=== PATIENT | female | born 1990 | race American Indian/Alaskan Native ===

== ENCOUNTER 2017-10-19 07:25 | Inpatient (IN) | payer MEDICAID ==
[2017-10-19] MEDS ORDERED: LACTATED RINGERS 1,000 ML IV SCH (10:00)
[2017-10-19] MEDS ORDERED: PITOCin/NS 30 UNIT/500ML 30 UNITS/500 ML BAG IV SCH (10:00)
[2017-10-19] MEDS ORDERED: PITOCin/NS 20 UNIT/1000ML DRIP 20 UNITS/1,000 ML BAG IV SCH ×2 (10:00→11:00)
[2017-10-19 10:23] LABS: Hematocrit 33.2 % (30.3-42.9); Hemoglobin 10.9 gm/dl (10.1-14.3); Mean Corpuscular HGB Conc 33 % (30-34); Mean Corpuscular Hemoglobin 27 pg (28-32); Mean Corpuscular Volume 83 fl (79-97); Platelet Count 311 K/mm3 (140-440); Red Cell Distribution Width 14.4 % (13.2-15.2); White Blood Count 12.5 K/mm3 (4.5-11.0)
[2017-10-19] MEDS ORDERED: BRETHINE IVP PRN (10:37)
[2017-10-19] MEDS ORDERED: XYLOCAINE 2% INFILTRATI ONE ×2 (10:37→14:42)
[2017-10-19] MEDS ORDERED: MINERAL OIL PO PRN (10:37)
[2017-10-19] MEDS ORDERED: ePHEDrine SULFATE IV PRN (10:37)
[2017-10-19] MEDS ORDERED: BRETHINE SUB-Q PRN (10:37)
[2017-10-19] MEDS ORDERED: NORMODYNE PO SCH (11:00)
--- NOTE | 2017-10-19 11:13 | History and Physical Report ---
History of Present Illness Date of examination: 10/19/17 Date of admission: 10/19/17 07:26 Chief complaint: C/O leaking fluid since 5am with contractions initially every 12-14 mins but now less than 5 mins apart. History of present illness: Her is complicated by gestational HTN, positive HSV II & vitamin D deficiency. She is on Labetalol 200mg BID. She was started on suppressive therapy for genital herpes 09/21/17 and denies any recent outbreak. Her GBS is negative. 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 Family/Genetic History: diabetes, hypertension Social history: single - Obstetrical History Expected Date of Delivery: 10/22/17 Actual Gestation: 39 Week(s) 4 Day(s) : 2 Para: 0 Hx # Term Pregnancies: 0 Number of Pregnancies: 0 Spontaneous Abortions: 1 Induced : 0 Number of Living Children: 0 Medications and Allergies Allergies Allergy/AdvReac Type Severity Reaction Status Date / Time No Known Allergies Allergy Unverified 09/29/17 13:00 Home Medications Medication Instructions Recorded Confirmed Last Taken Type ALBUTEROL Inhaler [ProAir HFA 1 puff INHALATION PRN 10/19/17 10/19/17 2 Days Ago History Inhaler] ~10/17/17 Labetalol [Normodyne] 200 mg PO BID 10/19/17 10/19/17 10/18/17 20:00 History Valacyclovir HCl [Valtrex] 1,000 mg PO QDAY 10/19/17 10/19/17 2 Days Ago History ~10/17/17 Active Meds: Active Medications Lactated Ringer's (Lactated Ringers) 1,000 mls @ 125 mls/hr IV DIRECT HARLEY Last Admin: 10/19/17 10:22 Dose: 125 mls/hr Oxytocin/Sodium Chloride (Pitocin/Ns 20 Unit/1000ml Drip) 20 units in 1,000 mls @ 0 mls/hr IV DIRECT HARLEY PRN Reason: As Directed Oxytocin/Sodium Chloride (Pitocin/Ns 30 Unit/500ml) 30 units in 500 mls @ 1 mls /hr IV TITR HARLEY PRN Reason: Protocol Last Admin: 10/19/17 10: Dose: 1 ml/hr, 1 mls/hr Labetalol HCl (Normodyne) 200 mg PO BID HARLEY Last Admin: 10/19/17 10:47 Dose: 200 mg Review of Systems All systems: negative - Vital Signs Vital signs: Vital Signs Pulse BP 95 H 143/85 10/19/17 07:39 10/19/17 07:39 Temp Pulse Resp BP Pulse Ox 98.1 F 99 H 18 141/84 100 10/19/17 08:14 10/19/17 10:47 10/19/17 08:14 10/19/17 10:47 10/19/17 09:30 - Physical Exam Breasts: Positive: deferred Cardiovascular: Regular rate, Normal S1, Normal S2, No murmurs Lungs: Positive: Clear to auscultation, Normal air movement Abdomen: Positive: normal appearance, soft Genitourinary (Female): Positive: normal external genitalia, normal perenium Vulva: both: normal Vagina: Positive: normal moisture, other (meconium-stained fluid) Uterus: Positive: normal size, normal contour Anus/Rectum: Positive: normal perianal skin Extremities: Positive: normal Deep Tendon Reflex Grade: Normal +2 - Obstetrical FHR: category 2 FHR comments: baseline 140, moderate variability, +accels, occasional early & variable decels Uterine Contraction Monitor Mode: Palpation Cervical Dilatation: 1.5 (per RN) Cervical Effacement Percentage: 80 (per RN) station: -2 (per RN) Uterine Contraction Frequency (min): 4-5 Uterine Contraction Duration: 60-100 secs Uterine Contraction Pattern: Regular Results Result Diagrams: 10/19/17 09:50 Abnormal lab results 10/19/17 Range/Units 09:50 WBC 12.5 H (4.5-11.0) K/mm3 MCH 27 L (28-32) pg All other labs normal. Assessment and Plan A: 26yo @ 39w4d by US SROM Latent Labor Gestational HTN P: Admit to L&D Start oxytocin for labor augmentation Continue Labetalol 200mg PO BID Anticipate vaginal delivery
[2017-10-19] MEDS: STADOL IV PRN ×2 (11:40→13:56)
--- NOTE | 2017-10-19 12:27 | Event Note ---
Date: 10/19/17 S: Pt c/o worsening ctxs. Pain level 09/05. O: FHR: baseline 135, mod variability, +accels, recurrent variable decels CTXS: q2-4 mins, palpate strong SVE 6/100/-1 IUPC/FSE inserted BP 146/99 A: Category II FHR Active Labor Gestational HTN P: Dr. Belcher notified Discontinue Pitocin Start amnioinfusion Maintain lateral positioning Stat PIH labs Anticipate vaginal delivery
[2017-10-19] MEDS ORDERED: NACL 0.9% 1000 ML 1,000 ML VG SCH (13:00)
[2017-10-19 14:03] LABS: Bilirubin,Urine NEG (Negative); Blood,Urine SM (Negative); Ketones,Urine NEG (Negative); Leukocyte Esterase,Urine NEG (Negative); Mucus,Urine FEW /HPF; Nitrite,Urine NEG (Negative); Protein,Urine <15 mg/dL mg/dL (Negative); Urobilinogen,Urine < 2.0 mg/dL (<2.0)
[2017-10-19] MEDS ORDERED: NARCAN 2 MG/2 ML ONE (14:15)
[2017-10-19 14:23] LABS: Alanine Aminotransferase 13 units/L (7-56); Lactate Dehydrogenase 251 units/L (91-180); Uric Acid 3.5 mg/dL (3.5-7.6)
[2017-10-19] MEDS ORDERED: CYTOTEC ONE (14:39)
[2017-10-19] MEDS ORDERED: METHERGINE IM ONE (14:40)
--- NOTE | 2017-10-19 14:48 | Progress Note ---
Assessment and Plan - Patient Problems (1) with 39 completed weeks gestation Current Visit: Yes Status: Acute (2) Active labor Current Visit: Yes Status: Acute Plan to address problem: Continue FHT and toco monitoring. Anticipate . (3) Thick meconium stained amniotic fluid Current Visit: Yes Status: Acute Plan to address problem: Amnioinfusion given. (4) Gestational HTN Current Visit: Yes Status: Acute Plan to address problem: Toxemia labs sent. Will f/u result and continue to monitor BP. Subjective - Subjective Date of service: 10/19/17 Principal diagnosis: Active labor Interval history: Patient is 26 year old at 39 weeks gestation who was admitted for early labor and SROM with thick meconium this AM. She developed variable decelerations while on pitocin augmentation. Pitocin was stopped and contractions continued every 2-3 mins. Amnioinfusion was given and the decelerations stopped. tracing had become CAT1 afterwards. BP was elevated to 140'/80-90's but patient has been asymptomatic. Toxemia labs are ordered. Result pending. Objective - Vital Signs Vital Signs: Vital Signs - 12hr 10/19/17 10/19/17 10/19/17 07:39 07:49 07:54 Temperature Pulse Rate 95 H 104 H 91 H Respiratory Rate Blood Pressure 143/85 O2 Sat by Pulse 100 100 Oximetry 10/19/17 10/19/17 10/19/17 07:59 08:04 08:09 Temperature Pulse Rate 89 93 H 97 H Respiratory Rate Blood Pressure O2 Sat by Pulse 100 99 100 Oximetry 10/19/17 10/19/17 10/19/17 08:14 08:19 08:24 Temperature 98.1 F Pulse Rate 94 H 103 H 120 H Respiratory 18 Rate Blood Pressure O2 Sat by Pulse 100 100 99 Oximetry 10/19/17 10/19/17 10/19/17 08:29 08:34 08:39 Temperature Pulse Rate 97 H 99 H 105 H Respiratory Rate Blood Pressure O2 Sat by Pulse 99 100 100 Oximetry 10/19/17 10/19/17 10/19/17 08:44 08:59 09:00 Temperature Pulse Rate 100 H 104 H 96 H Respiratory Rate Blood Pressure 132/80 O2 Sat by Pulse 100 100 Oximetry 10/19/17 10/19/17 10/19/17 09:05 09:08 09:10 Temperature Pulse Rate 99 H 103 H 102 H Respiratory Rate Blood Pressure O2 Sat by Pulse 100 85 94 Oximetry 10/19/17 10/19/17 10/19/17 09:15 09:20 09:25 Temperature Pulse Rate 91 H 94 H 98 H Respiratory Rate Blood Pressure O2 Sat by Pulse 100 100 100 Oximetry 10/19/17 10/19/17 10/19/17 09:29 09:30 10:01 Temperature Pulse Rate 98 H 94 H 101 H Respiratory Rate Blood Pressure 147/87 143/83 O2 Sat by Pulse 100 Oximetry 10/19/17 10/19/17 10/19/17 10:30 10:47 11:00 Temperature Pulse Rate 99 H 99 H 88 Respiratory Rate Blood Pressure 141/84 141/84 128/78 O2 Sat by Pulse Oximetry 10/19/17 10/19/17 10/19/17 11:29 11:41 12:01 Temperature 98.1 F Pulse Rate 90 90 Respiratory 16 Rate Blood Pressure 145/87 146/99 O2 Sat by Pulse Oximetry 10/19/17 10/19/17 10/19/17 12:29 13:18 13:25 Temperature Pulse Rate 86 75 77 Respiratory Rate Blood Pressure 133/75 134/79 O2 Sat by Pulse 98 Oximetry 10/19/17 10/19/17 10/19/17 13:30 13:35 13:37 Temperature Pulse Rate 88 87 81 Respiratory Rate Blood Pressure O2 Sat by Pulse 100 99 89 Oximetry 10/19/17 10/19/17 10/19/17 13:40 13:45 13:50 Temperature Pulse Rate 77 83 80 Respiratory Rate Blood Pressure O2 Sat by Pulse 100 100 100 Oximetry - Exam Cardiovascular: Normal S1, Normal S2 Lungs: Clear to auscultation FHR: category 1 Uterine Contraction Monitor Mode: External Cervical Dilatation: 5 Cervical Effacement Percentage: 80 station: -2 Uterine Contraction Pattern: Irregular Uterine Contraction Intensity: Moderate Deep Tendon Reflex Grade: Normal +2 - Labs Labs: Abnormal Labs 10/19/17 10/19/17 09:50 12:39 WBC 12.5 H MCH 27 L Creatinine 0.3 L Lactate Dehydrogenase 251 H Laboratory Results - last 24 hr 10/19/17 10/19/17 10/19/17 09:50 09:50 09:50 WBC 12.5 H RBC 4.00 Hgb 10.9 Hct 33.2 MCV 83 MCH 27 L MCHC 33 RDW 14.4 Plt Count 311 Creatinine Estimated GFR Uric Acid AST ALT Lactate Dehydrogenase Urine Color Urine Turbidity Urine pH Ur Specific Robards Urine Protein Urine Glucose (UA) Urine Ketones Urine Blood Urine Nitrite Urine Bilirubin Urine Urobilinogen Ur Leukocyte Esterase Urine WBC (Auto) Urine RBC (Auto) U Epithel Cells (Auto) Urine Mucus RPR Nonreactive Blood Type B POSITIVE Antibody Screen Negative 10/19/17 10/19/17 12:39 13:30 WBC RBC Hgb Hct MCV MCH MCHC RDW Plt Count Creatinine 0.3 L Estimated GFR > 60 Uric Acid 3.5 AST 21 ALT 13 Lactate Dehydrogenase 251 H Urine Color Yellow Urine Turbidity Clear Urine pH 7.0 Ur Specific Robards 1.014 Urine Protein <15 mg/dl Urine Glucose (UA) Neg Urine Ketones Neg Urine Blood Sm Urine Nitrite Neg Urine Bilirubin Neg Urine Urobilinogen < 2.0 Ur Leukocyte Esterase Neg Urine WBC (Auto) 1.0 Urine RBC (Auto) 15.0 U Epithel Cells (Auto) < 1.0 Urine Mucus Few RPR Blood Type Antibody Screen
--- NOTE | 2017-10-19 15:01 | Procedure Note ---
OB Delivery Note - Delivery Date of Delivery: 10/19/17 (14:30) Estimated blood loss: 300cc - Vaginal Delivery presentation: vertex Delivery position: OA Intrapartum events: meconium, gestational hypertension, mult.variable deceleratio Delivery induction: none Delivery augmentation: pitocin Delivery monitor: external FHT, external uterine, internal FHT, internal uterine Route of delivery: Delivery placenta: spontaneous (@ 14:34) Delivery cord: 3 umbilical vessels Episiotomy: none Delivery laceration: 1st degree (bilateral labial; hemostatic) Anesthesia: epidural Delivery comments: of a vigorous term female @ 14:30. Baby immediately placed on mom's abdomen & dried. Blow-by oxygen later administered by GRIFFIN Penny. Cord double- clamped and cut by FOB. Spontanoeus delivery of placenta @ 14:34. Moderate lochia noted. Fundus F/ML/U-1. Bilateral labial tears present and hemostatic with pressure so not repaired. Placenta intact. EBL 300. Apgars 7 at 1 min & 9 at 5 mins. Weight 7 lbs 13oz. Mom and baby in stable condition. - A at 1 minute: 7 at 5 minutes: 9 Infant Gender: Female
[2017-10-19] MEDS ORDERED: NORCO 5/325 PO PRN (15:14)
[2017-10-19] MEDS ORDERED: MILK OF MAGNESIA PO PRN (15:14)
[2017-10-19] MEDS ORDERED: DULCOLAX PR PRN (15:14)
[2017-10-19] MEDS ORDERED: TYLENOL PO PRN (15:14)
[2017-10-19] MEDS ORDERED: PHENERGAN PO PRN (15:14)
[2017-10-19] MEDS ORDERED: PHENERGAN PR PRN (15:14)
[2017-10-19] MEDS ORDERED: BENADRYL PO PRN (15:14)
[2017-10-19] MEDS ORDERED: TUCKS PAD TP PRN (15:14)
[2017-10-19] MEDS ORDERED: ZOFRAN IV PRN (15:14)
[2017-10-19] MEDS ORDERED: SODIUM CHLORIDE FLUSH SYRINGE 10 ML IV NR (16:00)
[2017-10-19] MEDS ORDERED: MOTRIN PO SCH (16:00)
[2017-10-20] MEDS: MOTRIN PO SCH ×5 (00:20→23:50)
[2017-10-20 05:15] LABS: Hematocrit 27.6 % (30.3-42.9); Hemoglobin 8.9 gm/dl (10.1-14.3)
--- NOTE | 2017-10-20 08:29 | Progress Note ---
Assessment and Plan A: day 1. Anemia. P: Supplement with iron po. Anticipate discharge tomorrow. Subjective - Subjective Date of service: 10/20/17 Principal diagnosis: day 1 S/P Interval history: Patient is doing well. Bottlefeeding. Caring for infant without difficulty. Patient is tolerating a regular diet without nausea or vomiting. She is ambulating well and voiding without difficulty. Patient denies headache, chest pain, cough, shortness of breath, leg pain, abdominal pain, or symptoms of depression. Patient reports: appetite normal, voiding normally, pain well controlled, flatus , ambulating normally : doing well Objective - Vital Signs Latest vital signs: Vital Signs Temp Pulse Resp BP BP Pulse Ox 10/20/17 01:00 99 F 89 18 125/71 10/20/17 00:20 18 10/19/17 22:05 98 F 92 H 18 126/71 10/19/17 16:25 97.5 F L 71 114/68 10/19/17 16:04 74 122/75 10/19/17 15:57 81 100 10/19/17 15:52 81 100 10/19/17 15:47 92 H 100 10/19/17 15:46 96.9 F L 16 10/19/17 15:42 88 100 10/19/17 15:37 77 144/77 100 10/19/17 15:32 73 100 10/19/17 15:27 74 100 10/19/17 15:23 83 139/77 10/19/17 15:22 84 100 10/19/17 15:17 96 H 100 10/19/17 15:12 97 H 100 10/19/17 15:08 90 142/93 10/19/17 15:07 86 99 10/19/17 14:53 47 L 133/91 10/19/17 13:50 80 100 10/19/17 13:45 83 100 10/19/17 13:40 77 100 10/19/17 13:37 81 89 10/19/17 13:35 87 99 10/19/17 13:30 88 100 10/19/17 13:25 77 98 10/19/17 13:18 75 134/79 10/19/17 12:29 86 133/75 10/19/17 12:01 90 146/99 10/19/17 11:41 98.1 F 16 11/23/17 11:29 90 145/87 10/19/17 11:00 88 128/78 10/19/17 10:47 99 H 141/84 10/19/17 10:30 99 H 141/84 10/19/17 10:01 101 H 143/83 10/19/17 09:30 94 H 100 10/19/17 09:29 98 H 147/87 10/19/17 09:25 98 H 100 10/19/17 09:20 94 H 100 10/19/17 09:15 91 H 100 10/19/17 09:10 102 H 94 10/19/17 09:08 103 H 85 10/19/17 09:05 99 H 100 10/19/17 09:00 96 H 100 10/19/17 08:59 104 H 132/80 10/19/17 08:44 100 H 100 10/19/17 08:39 105 H 100 10/19/17 08:34 99 H 100 10/19/17 08:29 97 H 99 Intake and Output 10/19/17 10/20/17 10/20/17 23:59 07:59 15:59 Intake Total 120 240 Output Total 1550 Balance -1430 240 Intake: Oral 120 Intake, Free Water 240 Output: Urine 1550 Void 1550 Other: Total, Intake Amount 120 Total, Output Amount 650 - Exam Abdomen: Present: normal appearance, soft. Absent: distention, tenderness, guarding, rigidity Uterus: Present: normal, firm. Absent: bogginess, tenderness, fundal height below umbilicus Extremities: Present: normal. Absent: tenderness, edema - Labs Labs: Abnormal lab results 10/19/17 10/19/17 10/20/17 Range/Units 09:50 12:39 04:45 WBC 12.5 H (4.5-11.0) K/mm3 Hgb 8.9 L (10.1-14.3) gm/dl Hct 27.6 L (30.3-42.9) % MCH 27 L (28-32) pg Creatinine 0.3 L (0.7-1.2) mg/dL Lactate Dehydrogenase 251 H (91-180) units/L
[2017-10-20] MEDS: FEOSOL PO SCH ×2 (14:00→21:35)
[2017-10-21] MEDS: MOTRIN PO SCH (05:33)
--- NOTE | 2017-10-21 09:17 | Progress Note ---
Assessment and Plan A: day 2 S/P spontaneous vaginal delivery. Anemia. P: Discharge patient home today. Advised patient to continue her vitamin and iron supplements at home. discharge instructions and warning signs discussed in detail with patient. Advised patient to avoid intercourse, avoid heavy lifting and housework, and avoid driving. Advised patient to follow up at [facility] in 6 weeks. Patient voiced understanding of above instructions. Subjective - Subjective Date of service: 10/21/17 Principal diagnosis: day 2 S/P Interval history: day 2 S/P spontaneous vaginal delivery. Patient desires discharge today. Patient is doing well. Bottlefeeding. Caring for without difficulty. Patient is tolerating a regular diet without nausea or vomiting. She is ambulating well and voiding without difficulty. Patient denies headache, chest pain, cough, shortness of breath, leg pain, abdominal pain, heavy vaginal bleeding, or symptoms of depression. Patient is undecided regarding control. Patient reports: appetite normal, voiding normally, pain well controlled, flatus , ambulating normally [place]: doing well Objective - Vital Signs Latest vital signs: Vital Signs Temp Pulse Resp BP BP Pulse Ox 10/21/17 00:27 98.3 F 78 20 129/78 10/20/17 16:30 98.8 F 90 20 124/78 100 10/20/17 12:45 97.9 F 92 H 18 130/77 99 Intake and Output 10/20/17 10/21/17 10/21/17 23:59 07:59 15:59 Intake Total 360 200 Balance 360 200 Intake: Oral 360 200 Other: Total, Intake Amount 360 200 # Voids Void 2 1 - Exam Cardiovascular: Present: Regular rate, Normal S1, Normal S2 Lungs: Present: Clear to auscultation Abdomen: Present: normal appearance, soft. Absent: distention, tenderness, guarding, rigidity Uterus: Present: normal, firm, fundal height below umbilicus. Absent: bogginess , tenderness Extremities: Present: normal. Absent: tenderness, edema
--- NOTE | 2017-10-21 09:21 | Discharge Summary ---
Providers - Providers Date of Admission: 10/19/17 07:26 Date of discharge: 10/21/17 Attending physician: VAHID WHITE MD None Primary care physician: VAHID WHITE MD Hospitalization Reason for admission: induction of labor, rupture of membranes, IUP at term Delivery: Episiotomy: none Laceration: 1st degree Other procedures: none complications: none Discharge diagnosis: IUP at term delivered [place] baby: female Pertinent studies: Labs Hospital course: Normal course. Condition at discharge: Good Disposition: DC-01 TO HOME OR SELFCARE - Discharge Diagnoses (1) Term delivered Status: Acute Plan - Provider Discharge Summary Activity: routine, no sex for 6 weeks, no heavy lifting 4 weeks, no strenuous exercise Diet: routine Instructions: routine Additional instructions: Call your doctor immediately for: * Fever > 100.5 * Heavy vaginal bleeding ( >1 pad per hour) * Severe persistent headache * Shortness of breath * Reddened, hot, painful area to leg or breast - Follow up plan Follow up: VAHID WHITE MD [Primary Care Provider] - 6 Weeks
[2017-10-21 13:36] VITALS: BP 123/81
== END 2017-10-21 13:30 | disposition home or self-care (01) | DRG 774 ==
LOC: TRG 07:25 → LD 07:26 → OB 16:29
PROVIDERS: ADMIT Obstetrics & Gynecology; ATTEND Obstetrics & Gynecology
PROC: 3E0R3BZ Introduction of Anesthetic Agent into Spinal Canal, Percutaneous Approach (ICD-10-PCS; principal; 2017-10-19)
PROC: 00HU33Z Insertion of Infusion Device into Spinal Canal, Percutaneous Approach (ICD-10-PCS; principal; 2017-10-19)
PROC: 10E0XZZ Delivery of Products of Conception, External Approach (ICD-10-PCS; principal; 2017-10-19)
DX: O77.0 Labor and delivery complicated by meconium in amniotic fluid (principal); O13.4 Gestational [pregnancy-induced] hypertension without significant proteinuria, complicating childbirth; O70.0 First degree perineal laceration during delivery; O76 Abnormality in fetal heart rate and rhythm complicating labor and delivery; Z3A.39 39 weeks gestation of pregnancy; Z37.0 Single live birth; O90.81 Anemia of the puerperium; D64.9 Anemia, unspecified
CPT/HCPCS: 36415; 81001; 82565; 83615; 84450; 84460; 84550; 85014; 85018; 85027; 86592; 86850; 86900; 86901; J0595; J2210; J2310; J2590; J7030; J7120

== ENCOUNTER 2018-03-07 17:30 | Emergency (ER) | payer OTHER, MEDICAID ==
[2018-03-07 17:44] VITALS: BP 132/85
[2018-03-07] MEDS ORDERED: MOTRIN ONE (19:59)
[2018-03-07] MEDS ORDERED: MOTRIN PO ONE (20:01)
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
[2018-03-07] MEDS ORDERED: FLEXERIL PO ONE (20:48)
[2018-03-07] MEDS ORDERED: NORCO 5/325 PO ONE (20:48)
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
== END 2018-03-07 23:10 | disposition home or self-care (01) ==
LOC: ED 17:30
DX: S16.1XXA Strain of muscle, fascia and tendon at neck level, initial encounter (principal); S60.221A Contusion of right hand, initial encounter; S40.011A Contusion of right shoulder, initial encounter; S50.12XA Contusion of left forearm, initial encounter; V49.40XA Driver injured in collision with unspecified motor vehicles in traffic accident, initial encounter; J45.909 Unspecified asthma, uncomplicated; F17.200 Nicotine dependence, unspecified, uncomplicated; F12.10 Cannabis abuse, uncomplicated; Y93.89 Activity, other specified; Y92.89 Other specified places as the place of occurrence of the external cause; Y99.8 Other external cause status
CPT/HCPCS: 72040; 99283

== ENCOUNTER 2019-06-07 06:43 | Emergency (ER) | payer MEDICAID, OTHER ==
[2019-06-07] MEDS ORDERED: BENADRYL PO ONE ×2 (06:51→06:55)
[2019-06-07] MEDS ORDERED: PEPCID PO ONE (06:51)
[2019-06-07] MEDS ORDERED: SOLU-Medrol IM ONE (06:51)
[2019-06-07 06:54] VITALS: BP 154/102
--- NOTE | 2019-06-07 08:34 | Emergency Department Report ---
ED Rash HPI - HPI Chief Complaint: Skin Rash Stated Complaint: ALLERGIC REACTION Time Seen by Provider: 06/07/19 08:12 Duration: Today Location: Head, Neck, Chest, Back, Abdomen, Upper Extremities, Lower Extremities, Other Rash Symptoms: Yes Itching, Yes Facial Swelling (bilateral eyelids) Severity: mild ED Review of Systems ROS: Stated complaint: ALLERGIC REACTION Other details as noted in HPI Comment: All other systems reviewed and negative ED Past Medical Hx - Past Medical History Previous Medical History?: Yes Hx Hypertension: No Hx Congestive Heart Failure: No Hx Diabetes: No Hx Deep Vein Thrombosis: No Hx Renal Disease: No Hx Sickle Cell Disease: No Hx Seizures: No Hx Asthma: Yes Hx COPD: No Hx HIV: No Additional medical history: Vaginal dleivery x 1 - Surgical History Past Surgical History?: No - Social History Smoking Status: Current Every Day Smoker Substance Use Type: Alcohol - Medications Home Medications: Home Medications Medication Instructions Recorded Confirmed Last Taken Type Cyclobenzaprine [Flexeril] 10 mg PO TID PRN #15 tablet 03/07/18 Unknown Rx Ibuprofen [Motrin] 600 mg PO Q8H PRN #15 tablet 03/07/18 Unknown Rx Loratadine [Allergy] 10 mg PO QDAY #30 tablet 06/07/19 Unknown Rx predniSONE [Deltasone] 40 mg PO QDAY #8 tab 06/07/19 Unknown Rx Rash Exam - Exam General: Vital signs noted. No distress. Alert and acting appropriately. HEENT: Yes Periorbital Edema, No Conjuctival Injection, No Chemosis, No Perioral Edema, No Tongue Edema, No Uvular Edema, No Compromised Airway, No Drooling Lungs: Yes Good Air Exchange (Normal Breath Sounds), No Wheezes, No Ronchi, No Stridor, No Cough, No Labored Respirations, No Retractions, No Use of Accessory Muscles, No Other Abnormal Lung Sounds Heart: No Regular (tachycardic) Skin: Yes Urticarial Rash Other: Positive: Abdomen Normal, Neurologic Normal, Musculoskeletal Normal ED Course Vital Signs 06/07/19 06:45 Temperature 97.7 F Pulse Rate 123 H Respiratory 18 Rate Blood Pressure 154/102 O2 Sat by Pulse 100 Oximetry ED Medical Decision Making - Medical Decision Making 28-year-old female comes in for allergic reaction. Patient was given dexamethasone Pepcid and Benadryl. Patient reports that her symptoms are improving. Patient be discharged home on steroids 40 mg daily for the next 4 days and loratadine. She is to follow up with primary care provider or wood barker she has any further concerns. Critical care attestation.: If time is entered above; I have spent that time in minutes in the direct care of this critically ill patient, excluding procedure time. ED Disposition Clinical Impression: Urticaria Allergic reaction Qualifiers: Encounter type: initial encounter Qualified Code(s): T78.40XA - Allergy, unspecified, initial encounter Disposition: TO HOME OR SELFCARE Is pt being admited?: No Does the pt Need Aspirin: No Condition: Stable Instructions: Urticaria (ED) Additional Instructions: Take medications as prescribed. Follow up with her primary care provider or wood barker if symptoms persist or gets worse. Prescriptions: Loratadine [Allergy] 10 mg PO QDAY #30 tablet predniSONE [Deltasone] 40 mg PO QDAY #8 tab Referrals: JIM ROSENTHAL MD [Primary Care Provider] - 3-5 Days Forms: Work/School Release Form(ED)
== END 2019-06-07 08:52 | disposition home or self-care (01) ==
LOC: ED 06:43
DX: T78.40XA Allergy, unspecified, initial encounter (principal); L50.9 Urticaria, unspecified; J45.909 Unspecified asthma, uncomplicated; F17.200 Nicotine dependence, unspecified, uncomplicated; Y92.89 Other specified places as the place of occurrence of the external cause
CPT/HCPCS: 96372; 99282; J2930

== ENCOUNTER 2021-11-04 22:55 | Outpatient (CLI) | payer MEDICAID ==
[2021-11-04] MEDS ORDERED: LACTATED RINGERS 500 ML IV ONE (23:17)
[2021-11-04 23:39] VITALS: BP 128/71
[2021-11-05 00:56] LABS: Amorphous Crystals,Urine 3+; Bilirubin,Urine NEG (Negative); Blood,Urine NEG (Negative); Color,Urine Yellow (Yellow); Protein,Urine <15 mg/dL mg/dL (Negative); Urobilinogen,Urine < 2.0 mg/dL (<2.0)
== END 2021-11-05 01:51 | disposition home or self-care (01) ==
LOC: TRG 22:55 → APU 22:56 → TRG 11-05 01:51
PROVIDERS: ATTEND Obstetrics & Gynecology Gynecology
DX: O26.892 Other specified pregnancy related conditions, second trimester (principal); R25.2 Cramp and spasm; O47.1 False labor at or after 37 completed weeks of gestation; O99.342 Other mental disorders complicating pregnancy, second trimester; F41.9 Anxiety disorder, unspecified; O99.512 Diseases of the respiratory system complicating pregnancy, second trimester; J45.909 Unspecified asthma, uncomplicated; O13.2 Gestational [pregnancy-induced] hypertension without significant proteinuria, second trimester; Z3A.27 27 weeks gestation of pregnancy
CPT/HCPCS: 36415; 59025; 81001; 82731; 96360; 96361

== ENCOUNTER 2022-01-30 16:26 | Outpatient (CLI) | payer MEDICAID ==
[2022-01-30] MEDS ORDERED: ACETAMINOPHEN 500 MG TAB PO ONE (17:00)
[2022-01-30] MEDS ORDERED: BUTALB/ACETAMINOPHEN/CAFFEINE TAB PO ONE (17:34)
[2022-01-30 17:35] VITALS: BP 129/60
== END 2022-01-30 17:49 | disposition home or self-care (01) ==
LOC: TRG 16:26 → APU 16:29 → TRG 17:49
PROVIDERS: ATTEND Obstetrics & Gynecology
DX: Z34.93 Encounter for supervision of normal pregnancy, unspecified, third trimester (principal); Z3A.39 39 weeks gestation of pregnancy
CPT/HCPCS: 59025

== ENCOUNTER 2022-02-07 12:39 | Inpatient (IN) | payer MEDICAID ==
[2022-02-07] MEDS ORDERED: ACETAMINOPHEN 325 MG TAB PO PRN ×2 (13:06→23:35)
[2022-02-07] MEDS ORDERED: LIDOCAINE (2%) 20 MG/1 ML VIAL 20 ML MDV INFILTRATI ONE ×2 (13:06→23:54)
[2022-02-07] MEDS ORDERED: MINERAL OIL 30 ML ORAL LIQD PO PRN (13:06)
[2022-02-07] MEDS ORDERED: fentaNYL 100 MCG/2 ML INJ IV PRN (13:06)
[2022-02-07] MEDS ORDERED: BUTORPHANOL 2 MG/1 ML INJ IV PRN ×2 (13:06)
[2022-02-07] MEDS ORDERED: LOPERAMIDE 2 MG CAP PO PRN (13:06)
[2022-02-07] MEDS ORDERED: OXYTOCIN 10 UNIT/1 ML INJ IM PRN (13:06)
[2022-02-07] MEDS ORDERED: miSOPROStol 200 MCG TAB PR PRN (13:06)
[2022-02-07] MEDS ORDERED: METHYLERGONOVINE MALEATE 0.2 MG/ML VIAL IM PRN (13:06)
[2022-02-07] MEDS ORDERED: ePHEDrine SULFATE 50 MG/1 ML INJ IV PRN (13:06)
[2022-02-07] MEDS ORDERED: CARBOPROST TROMETHAMINE 250 MCG/1 ML INJ IM PRN (13:06)
[2022-02-07] MEDS ORDERED: DINOPROSTONE 10 MG VAG SUPP VG ONE (13:06)
[2022-02-07] MEDS ORDERED: TERBUTALINE 1 MG/1 ML INJ SUB-Q PRN (13:06)
[2022-02-07] MEDS ORDERED: NalbUPHINE 10 MG/1 ML INJ IV PRN (13:06)
[2022-02-07] MEDS ORDERED: LACTATED RINGERS 1,000 ML IV SCH (13:15)
[2022-02-07 13:29] LABS: Hematocrit 35.4 % (30.3-42.9); Hemoglobin 11.5 gm/dl (10.1-14.3); Mean Corpuscular HGB Conc 32 % (30-34); Mean Corpuscular Volume 85 fl (79-97); Platelet Count 263 K/mm3 (140-440); Red Blood Count 4.15 M/mm3 (3.65-5.03)
[2022-02-07 13:52] LABS: Red Cell Distribution Width 22.9 % (13.2-15.2)
[2022-02-07 13:53] LABS: Alanine Aminotransferase 8 units/L (7-56); Uric Acid 3.1 mg/dL (3.5-7.6)
[2022-02-07] MEDS ORDERED: OXYTOCIN DRIP 30 UNITS/500 ML BAG IV SCH ×2 (14:00)
[2022-02-07] MEDS: AMPICILLIN/NS 1 GM/50 ML 1 GM/50 ML BAG IV SCH ×2 (14:59→19:14)
--- NOTE | 2022-02-07 16:39 | History and Physical Report ---
History of Present Illness Date of examination: 02/07/22 Date of admission: 02/07/22 12:40 Chief complaint: Sent from office for induction of labor due to elevated blood pressures History of present illness: Early entry to care, course complicated by N&V, and a positive Quad screen screen (OSB); co-managed by [facility]; infant found to have mild renal di lation. course also complicated by Anemia (PO FeSO4), Vitamin D Deficiency (PO Vit. D), and HSV II (Valacyclovir suppression). 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 Family/Genetic History: diabetes (mother), hypertension (parents), cancer (Lung CA: MGM) Social history: no significant social history, single - Obstetrical History Expected Date of Delivery: 02/01/22 Actual Gestation: 40 Week(s) 6 Day(s) : 3 Para: 1 Hx # Term Pregnancies: 1 Spontaneous Abortions: 1 Number of Living Children: 1 #1 Infant Gender: Female year: 2018 Birthweight: 3.544 kg Method of Delivery: Vaginal Gestational age at delivery: 39 Complications: other (gestational HTN) Medications and Allergies Allergies Allergy/AdvReac Type Severity Reaction Status Date / Time No Known Allergies Allergy Verified 01/30/22 16:41 Home Medications Medication Instructions Recorded Confirmed Last Taken Type Cyclobenzaprine [Flexeril] 10 mg PO TID PRN #15 tablet 03/07/18 02/07/22 Unknown Rx Ibuprofen [Motrin] 600 mg PO Q8H PRN #15 tablet 03/07/18 02/07/22 Unknown Rx Loratadine [Allergy] 10 mg PO QDAY #30 tablet 06/07/19 02/07/22 Unknown Rx predniSONE [Deltasone] 40 mg PO QDAY #8 tab 06/07/19 02/07/22 Unknown Rx Active Meds: Active Medications Acetaminophen (Acetaminophen 325 Mg Tab) 650 mg PO Q4H PRN PRN Reason: Pain, Mild (1-3) Butorphanol Tartrate (Butorphanol 2 Mg/1 Ml Inj) 1 mg IV Q2H PRN PRN Reason: Pain, Moderate(4-6) LABOR PAIN Butorphanol Tartrate (Butorphanol 2 Mg/1 Ml Inj) 2 mg IV Q2H PRN PRN Reason: Pain , Severe (7-10) Carboprost Tromethamine (Carboprost Tromethamine 250 Mcg/1 Ml Inj) 250 mcg IM ONCE PRN PRN Reason: Uterine Bleeding Ephedrine Sulfate (Ephedrine Sulfate 50 Mg/1 Ml Inj) 10 mg IV Q2M PRN PRN Reason: Hypotension Fentanyl (Fentanyl 100 Mcg/2 Ml Inj) 100 mcg IV Q2H PRN PRN Reason: Pain,Severe (7-10) LABOR PAIN Oxytocin/Sodium Chloride (Pitocin/Ns 30 Unit/500ml) 30 units in 500 mls @ 2 mls/hr IV TITR [facility]; Protocol Lactated Ringer's (Lactated Ringers) 1,000 mls @ 125 mls/hr IV DIRECT [facility] Oxytocin/Sodium Chloride (Pitocin/Ns 30 Unit/500ml) 30 units in 500 mls @ 40 mls/hr IV TITR [facility]; Protocol Ampicillin Sodium (Ampicillin/Ns 1 Gm/50 Ml) 1 gm in 50 mls @ 100 mls/hr IV Q4H [facility]; Protocol Last Admin: 02/07/22 14:59 Dose: 100 mls/hr Loperamide HCl (Loperamide 2 Mg Cap) 2 mg PO ONCE PRN PRN Reason: give with Hemabate Methylergonovine Maleate (Methylergonovine Maleate 0.2 Mg/Ml Vial) 0.2 mg IM ONCE PRN PRN Reason: Uterine Bleeding Mineral Oil (Mineral Oil 30 Ml Oral Liqd) 30 ml PO QHS PRN PRN Reason: Constipation Misoprostol (Misoprostol 200 Mcg Tab) 800 mcg [place] ONCE PRN PRN Reason: Uterine Bleeding Nalbuphine HCl (Nalbuphine 10 Mg/1 Ml Inj) 10 mg IV Q2H PRN PRN Reason: Pain, Moderate (4-6) Oxytocin (Oxytocin 10 Unit/1 Ml Inj) 10 unit IM ONCE PRN PRN Reason: Uterine Bleeding Terbutaline Sulfate (Terbutaline 1 Mg/1 Ml Inj) 0.25 mg SUB-Q ONCE PRN PRN Reason: Hyperstimulation/Hypertonicity Review of Systems All systems: negative - Vital Signs Vital signs: Vital Signs Pulse Ox 90 02/07/22 13:00 Temp Pulse Resp BP Pulse Ox 98.3 F 98 H 14 126/68 100 02/07/22 13:02 02/07/22 16:28 02/07/22 13:02 02/07/22 16:05 02/07/22 16:28 - Physical Exam Breasts: Positive: normal Cardiovascular: Regular rate Lungs: Positive: Clear to auscultation, Normal air movement Abdomen: Positive: normal appearance, soft, normal bowel sounds Genitourinary (Female): Positive: normal external genitalia, normal perenium Vagina: Positive: normal moisture Uterus: Positive: enlarged - Obstetrical FHR: category 1 Uterine Contraction Monitor Mode: External Cervical Dilatation: 4 Cervical Effacement Percentage: 60 station: -3 Uterine Contraction Pattern: Irregular Uterine Tone Measurement Phase: Resting Uterine Contraction Intensity: Mild Results Result Diagrams: 02/07/22 13:09 02/07/22 13:09 Abnormal lab results 02/07/22 02/07/22 Range/Units 13:09 13:09 RDW 22.9 H (13.2-15.2) % Creatinine 0.4 L (0.6-1.2) mg/dL Uric Acid 3.1 L (3.5-7.6) mg/dL Lactate Dehydrogenase 185 H (91-180) units/L All other labs normal. Assessment and Plan A: IUP @ 40 6/7 Weeks Category I Tracing Occ. Elevated Blood Pressures GBS Positive P: Admit to L&D Per Routine Orders [facility] Labs Pitocin Induction GBS Prophylaxis
[2022-02-07] MEDS ORDERED: MAGNESIUM SULFATE 4 GM/100 ML BAG IV ONE (21:52)
[2022-02-07] MEDS ORDERED: MAGNESIUM SULFATE 2 GM/50 ML BAG IV ONE (22:00)
[2022-02-07] MEDS ORDERED: miSOPROStol 200 MCG TAB ONE (22:49)
[2022-02-07] MEDS ORDERED: CARBOPROST TROMETHAMINE 250 MCG/1 ML INJ IM ONE (22:49)
[2022-02-07 22:53] LABS: Basophils % (Auto) 0.4 % (0.0-1.8); Eosinophils # (Auto) 0.1 K/mm3 (0.0-0.4); Hematocrit 35.5 % (30.3-42.9); Hemoglobin 11.5 gm/dl (10.1-14.3); Lymphocytes % (Auto) 20.7 % (13.4-35.0); Mean Corpuscular HGB Conc 33 % (30-34); Mean Corpuscular Volume 85 fl (79-97); Monocytes # (Auto) 0.5 K/mm3 (0.0-0.8); Monocytes % (Auto) 4.9 % (0.0-7.3); Platelet Count 294 K/mm3 (140-440); Red Blood Count 4.16 M/mm3 (3.65-5.03)
[2022-02-07 23:02] LABS: Alanine Aminotransferase 8 units/L (7-56); Albumin 3.7 g/dL (3.9-5); Blood Urea Nitrogen 4 mg/dL (7-17); Calcium 8.3 mg/dL (8.4-10.2); Hemolysis Index 5
[2022-02-07 23:04] LABS: BUN/Creatinine Ratio 10
[2022-02-07 23:07] LABS: Red Cell Distribution Width 22.9 % (13.2-15.2)
[2022-02-07] MEDS ORDERED: BENZOCAINE/MENTHOL 20/0.5% TOP SPRAY 56 GM TP PRN (23:35)
[2022-02-07] MEDS ORDERED: WITCH HAZEL/ GLYCERIN PAD TP PRN (23:35)
[2022-02-07] MEDS ORDERED: ONDANSETRON 4 MG/2 ML INJ IV PRN (23:35)
[2022-02-07] MEDS ORDERED: MAGNESIUM HYDROXIDE (MOM) ORAL LIQD UDC PO PRN (23:35)
[2022-02-07] MEDS ORDERED: HYDROcodone/ACETAMINOPHEN 5-325 MG TAB PO PRN (23:35)
[2022-02-07] MEDS ORDERED: LANOLIN/ZINC/DIMETHICONE (LANSINOH) 7 GM TP PRN (23:35)
--- NOTE | 2022-02-07 23:35 | Procedure Note ---
OB Delivery Note - Delivery Date of Delivery: 02/07/22 Surgeon: SERVANDO SILVA Estimated blood loss: 500cc - Vaginal Delivery position: OA Intrapartum events: preeclampsia (Pre-eclampsia with severe features), hemorrhage, shoulder dystocia Delivery induction: oxytocin Delivery monitor: external FHT, external uterine Route of delivery: Delivery placenta: spontaneous Delivery cord: 3 umbilical vessels Episiotomy: none Delivery laceration: other ((B) vera-urethral) Delivery repair: vicryl Anesthesia: local Delivery comments: Shoulder dystocia for 5-10 seconds. Posterior shoulder delivered manually. Remainder of infant delivered without issue. - Infant A at 1 minute: 8 at 5 minutes: 9 Gender: Female
[2022-02-08] MEDS: MAGNESIUM SULFATE 40GM/1000ML 40 GM/1,000 ML BAG IV SCH ×2 (00:19→18:59)
[2022-02-08 01:16] LABS: Bilirubin,Urine NEG (Negative); Blood,Urine SM (Negative); Color,Urine Straw (Yellow); Protein,Urine <15 mg/dL mg/dL (Negative); Urobilinogen,Urine < 2.0 mg/dL (<2.0); WBC,Urine < 1.0 /HPF (0.0-6.0)
[2022-02-08 01:24] LABS: Creatinine,Urine 33.5 mg/dL (0.1-20.0)
[2022-02-08 01:52] LABS: Uric Acid 3.1 mg/dL (3.5-7.6)
[2022-02-08 05:52] LABS: Hematocrit 29.5 % (30.3-42.9); Hemoglobin 9.4 gm/dl (10.1-14.3); Mean Corpuscular HGB Conc 32 % (30-34); Mean Corpuscular Volume 85 fl (79-97); Platelet Count 246 K/mm3 (140-440); Red Blood Count 3.47 M/mm3 (3.65-5.03)
[2022-02-08 05:53] LABS: Red Cell Distribution Width 22.8 % (13.2-15.2)
--- NOTE | 2022-02-08 09:00 | Progress Note ---
Assessment and Plan A: S/P Preeclampsia Asymptomatic anemia S/P PPH and shoulder dystocia P: Continue routine pp orders Mg level Continue Fe as ordered D/c home with 24-48 hrs if stable Subjective - Subjective Date of service: 02/08/22 Principal diagnosis: s/p Patient reports: appetite normal, voiding normally, pain well controlled, other (newell in place draining adq amts urine) [place]: doing well, bottle feeding Objective - Vital Signs Latest vital signs: Vital Signs Temp Pulse Resp BP BP Pulse Ox Pulse Ox 02/08/22 08:56 93 H 100 02/08/22 08:51 88 89 02/08/22 08:48 94 H 93 02/08/22 08:46 95 H 95 02/08/22 08:45 98.5 F 91 H 18 146/78 100 02/08/22 08:44 91 H 146/78 02/08/22 08:43 96 H 92 02/08/22 08:41 99 H 98 02/08/22 08:36 88 100 02/08/22 08:31 90 100 02/08/22 08:30 100 02/08/22 08:26 85 99 02/08/22 08:21 93 H 99 02/08/22 08:16 96 H 99 02/08/22 08:11 86 100 02/08/22 08:06 82 99 02/08/22 08:01 86 100 02/08/22 07:56 85 100 02/08/22 07:51 91 H 100 02/08/22 07:46 87 100 02/08/22 07:44 98 H 154/80 93 02/08/22 07:41 92 H 100 02/08/22 07:36 64 97 02/08/22 07:34 76 94 02/08/22 07:31 92 H 100 02/08/22 07:26 98 H 96 02/08/22 07:22 89 94 02/08/22 07:21 89 98 02/08/22 07:16 89 100 02/08/22 07:15 94 H 91 02/08/22 07:11 96 H 99 02/08/22 07:06 89 86 02/08/22 07:01 82 100 02/08/22 06:58 97 H 91 02/08/22 06:56 80 100 02/08/22 06:51 78 97 02/08/22 06:48 80 92 02/08/22 06:46 82 99 02/08/22 06:44 73 155/80 02/08/22 06:41 79 99 02/08/22 06:40 81 93 02/08/22 06:36 89 100 02/08/22 06:31 90 100 02/08/22 06:26 84 99 02/08/22 06:21 81 100 02/08/22 06:16 81 93 02/08/22 06:11 81 100 02/08/22 06:08 84 91 02/08/22 06:06 82 93 02/08/22 06:03 88 92 02/08/22 06:01 91 H 100 02/08/22 05:57 87 80 L 02/08/22 05:56 90 99 02/08/22 05:51 88 99 02/08/22 05:46 88 100 02/08/22 05:41 86 98 02/08/22 05:36 83 99 02/08/22 05:31 87 99 02/08/22 05:26 83 98 02/08/22 05:21 83 98 02/08/22 05:16 95 H 99 02/08/22 05:11 84 97 02/08/22 05:06 95 H 100 02/08/22 05:04 99 H 132/61 91 02/08/22 05:01 84 96 02/08/22 04:56 82 97 02/08/22 04:51 77 97 02/08/22 04:46 87 97 02/08/22 04:41 99 H 97 02/08/22 04:36 93 H 98 02/08/22 04:34 88 129/64 93 02/08/22 04:31 98 H 100 02/08/22 04:26 84 97 02/08/22 04:21 83 97 02/08/22 04:19 99 H 94 02/08/22 04:16 95 H 99 02/08/22 04:11 82 99 02/08/22 04:06 94 H 98 02/08/22 04:04 87 133/74 02/08/22 04:01 88 98 02/08/22 03:56 97 H 100 02/08/22 03:51 85 98 02/08/22 03:46 85 97 02/08/22 03:41 82 99 03/15/22 03:36 80 98 02/08/22 03:34 83 133/76 02/08/22 03:31 98 H 97 02/08/22 03:26 94 H 99 02/08/22 03:21 86 99 02/08/22 03:16 86 99 02/08/22 03:13 55 L 91 02/08/22 03:11 92 H 99 02/08/22 03:06 83 99 02/08/22 03:04 88 133/65 02/08/22 03:01 90 99 02/08/22 02:56 99 H 99 02/08/22 02:51 108 H 100 02/08/22 02:46 82 98 02/08/22 02:41 89 99 02/08/22 02:36 80 100 02/08/22 02:34 84 144/68 02/08/22 02:31 91 H 100 02/08/22 02:26 76 100 02/08/22 02:21 82 100 02/08/22 02:20 88 90 02/08/22 02:16 89 98 02/08/22 02:11 93 H 97 02/08/22 02:06 87 100 02/08/22 02:04 83 133/66 02/08/22 02:01 83 100 02/08/22 01:56 91 H 99 02/08/22 01:55 71 89 02/08/22 01:51 88 100 02/08/22 01:46 95 H 99 02/08/22 01:41 90 100 02/08/22 01:36 84 99 02/08/22 01:33 96 H 152/84 02/08/22 01:31 91 H 100 02/08/22 01:26 92 H 100 02/08/22 01:21 91 H 100 02/08/22 01:20 93 H 125/101 02/08/22 01:16 84 100 02/08/22 01:11 84 100 02/08/22 01:06 87 100 02/08/22 01:01 85 100 02/08/22 00:56 90 99 02/08/22 00:51 89 100 02/08/22 00:46 78 100 02/08/22 00:41 88 100 02/08/22 00:36 93 H 100 02/08/22 00:31 94 H 100 0315/22 00:26 98 H 99 02/08/22 00:21 97 H 100 02/08/22 00:19 90 148/79 02/08/22 00:16 86 100 02/08/22 00:11 93 H 100 02/08/22 00:09 96 H 149/82 02/08/22 00:06 93 H 100 02/08/22 00:01 97 H 99 02/07/22 23:59 96 H 133/84 02/07/22 23:56 86 100 02/07/22 23:51 86 99 02/07/22 23:50 86 140/94 02/07/22 23:46 86 100 02/07/22 23:41 92 H 100 02/07/22 23:39 90 140/65 02/07/22 23:36 94 H 100 02/07/22 23:31 91 H 100 02/07/22 23:30 153 H 152/73 02/07/22 23:26 103 H 100 02/07/22 23:21 101 H 100 02/07/22 23:19 98 H 149/86 02/07/22 23:16 105 H 100 02/07/22 23:11 109 H 100 02/07/22 23:07 100 H 156/97 02/07/22 23:06 105 H 100 02/07/22 23:01 98 H 100 02/07/22 23:00 107 H 94 02/07/22 22:56 87 100 02/07/22 22:51 109 H 100 02/07/22 22:46 80 99 02/07/22 22:41 97 H 100 02/07/22 22:36 97 H 100 02/07/22 22:31 88 99 02/07/22 22:28 76 L 02/07/22 22:26 90 97 03 22:25 96 H 150/91 02/07/22 22:21 89 100 02/07/22 22:16 86 98 02/07/22 22:11 92 H 100 02/07/22 22:07 91 H 91 02/07/22 22:06 83 99 02/07/22 22:03 81 155/77 02/07/22 22:01 95 H 94 02/07/22 21:56 94 H 100 02/07/22 21:53 80 151/66 0314/22 21:52 63 73 L 02/07/22 21:51 91 H 99 02/07/22 21:46 82 99 02/07/22 21:41 90 167/79 99 02/07/22 21:40 97 H 155/108 88 02/07/22 21:36 90 99 02/07/22 21:31 87 99 02/07/22 21:26 95 H 98 02/07/22 21:25 86 158/78 02/07/22 21:21 85 100 02/07/22 21:17 102 H 86 02/07/22 21:16 100 02/07/22 21:11 84 100 02/07/22 21:06 92 H 100 02/07/22 21:01 82 95 02/07/22 20:57 92 H 133/87 94 02/07/22 20:56 90 95 02/07/22 20:51 99 H 99 02/07/22 20:46 92 H 99 02/07/22 20:41 105 H 100 02/07/22 20:36 85 100 02/07/22 20:31 97 H 100 02/07/22 20:26 104 H 99 02/07/22 20:23 87 125/61 02/07/22 20:21 87 100 02/07/22 20:16 100 H 99 02/07/22 20:11 89 100 02/07/22 20:06 98 H 100 02/07/22 20:01 94 H 97 02/07/22 19:34 100 02/07/22 19:19 102 H 100 02/07/22 19:14 95 H 100 02/07/22 19:09 102 H 100 02/07/22 19:04 91 H 100 02/07/22 18:59 98 H 100 02/07/22 18:54 98 H 100 02/07/22 18:49 102 H 100 02/07/22 18:44 94 H 100 02/07/22 18:39 95 H 99 02/07/22 18:34 91 H 100 02/07/22 18:29 96 H 100 02/07/22 18:24 97 H 100 02/07/22 18:23 94 H 124/61 02/07/22 18:19 100 H 99 02/07/22 18:14 89 99 02/07/22 18:10 88 133/77 02/07/22 18:09 91 H 100 02/07/22 17:48 100 H 100 02/07/22 17:43 108 H 100 02/07/22 17:38 94 H 100 02/07/22 17:33 96 H 100 02/07/22 17:28 98 H 99 02/07/22 17:23 100 H 121/57 99 02/07/22 17:18 98 H 100 02/07/22 17:13 102 H 100 02/07/22 17:11 98.2 F 02/07/22 17:08 93 H 100 02/07/22 17:03 100 H 100 02/07/22 16:58 105 H 100 02/07/22 16:53 96 H 99 02/07/22 16:48 93 H 99 02/07/22 16:45 93 H 132/79 02/07/22 16:43 94 H 98 02/07/22 16:38 92 H 99 02/07/22 16:33 76 100 02/07/22 16:28 98 H 100 02/07/22 16:23 99 H 100 02/07/22 16:14 94 H 99 02/07/22 16:09 94 H 99 02/07/22 16:05 94 H 126/68 02/07/22 16:04 94 H 100 02/07/22 15:59 99 H 99 02/07/22 15:54 93 H 100 02/07/22 15:49 91 H 99 02/07/22 15:44 91 H 99 02/07/22 15:39 86 100 02/07/22 15:34 91 H 99 02/07/22 15:29 105 H 99 02/07/22 15:24 91 H 143/84 99 02/07/22 15:19 90 100 02/07/22 15:14 85 99 02/07/22 15:09 89 100 02/07/22 15:08 73 55 L 02/07/22 15:04 88 100 02/07/22 14:59 92 H 100 02/07/22 14:55 94 H 164/87 02/07/22 14:54 92 H 98 02/07/22 14:51 80 L 02/07/22 14:49 60 80 L 02/07/22 14:44 53 L 76 L 02/07/22 14:41 106 H 100 02/07/22 14:36 91 H 100 02/07/22 14:31 94 H 100 02/07/22 14:26 85 100 02/07/22 14:23 93 H 114/61 02/07/22 14:21 90 100 02/07/22 14:16 87 100 02/07/22 14:11 92 H 100 02/07/22 14:06 89 100 02/07/22 14:01 89 100 02/07/22 13:56 102 H 100 02/07/22 13:53 96 H 143/80 02/07/22 13:51 97 H 100 02/07/22 13:46 95 H 100 02/07/22 13:41 92 H 100 02/07/22 13:36 97 H 100 02/07/22 13:31 102 H 100 02/07/22 13:26 98 H 100 02/07/22 13:21 100 H 100 02/07/22 13:16 100 H 100 02/07/22 13:11 97 H 99 02/07/22 13:06 92 H 100 02/07/22 13:02 98.3 F 98 H 14 151/82 100 100 02/07/22 13:01 92 H 151/82 100 02/07/22 13:00 90 Intake and Output 02/07/22 02/08/22 02/08/22 22:59 06:59 14:59 Intake Total 53.15 Output Total 1800 Balance 53.15 -1800 Intake: IV 53.15 AMPICILLIN/NS 1 GM/50 ML 50 1 gm In 50 ml @ 100 mls/ hr IV Q4H [facility] Rx#: [id number] PITOCin/NS 30 UNIT/500ML 3.15 30 units In 500 ml @ 2 mls/hr IV TITR [facility] Rx#: [id number] Output: Urine 1800 Indwelling Catheter 1800 Other: Total, Output Amount 1800 - Exam Breasts: Present: normal Abdomen: Present: normal appearance, normal bowel sounds Vulva: both: normal Uterus: Present: normal, firm, fundal height below umbilicus Extremities: Present: normal Incision: Present: normal, intact - Labs Labs: Abnormal lab results 02/07/22 02/07/22 02/07/22 Range/Units 00:56 00:56 13:09 WBC (4.5-11.0) K/mm3 RBC (3.65-5.03) M/mm3 Hgb (10.1-14.3) gm/dl Hct (30.3-42.9) % MCH (28-32) pg RDW 22.9 H (13.2-15.2) % Seg Neutrophils % (40.0-70.0) % Potassium (3.6-5.0) mmol/L Carbon Dioxide (22-30) mmol/L BUN (7-17) mg/dL Creatinine (0.6-1.2) mg/dL Uric Acid (3.5-7.6) mg/dL Calcium (8.4-10.2) mg/dL Magnesium (1.7-2.3) mg/dL Alkaline Phosphatase (35-129) units/L Lactate Dehydrogenase (91-180) units/L Albumin (3.9-5) g/dL Urine pH 8.0 H (5.0-7.0) Urine Creatinine 33.5 H (0.1-20.0) mg/dL 02/07/22 02/07/22 02/07/22 Range/Units 13:09 22:27 22:27 WBC (4.5-11.0) K/mm3 RBC (3.65-5.03) M/mm3 Hgb (10.1-14.3) gm/dl Hct (30.3-42.9) % MCH (28-32) pg RDW 22.9 H (13.2-15.2) % Seg Neutrophils % 73.0 H (40.0-70.0) % Potassium (3.6-5.0) mmol/L Carbon Dioxide (22-30) mmol/L BUN (7-17) mg/dL Creatinine 0.4 L (0.6-1.2) mg/dL Uric Acid 3.1 L 3.1 L (3.5-7.6) mg/dL Calcium (8.4-10.2) mg/dL Magnesium (1.7-2.3) mg/dL Alkaline Phosphatase (35-129) units/L Lactate Dehydrogenase 185 H (91-180) units/L Albumin (3.9-5) g/dL Urine pH (5.0-7.0) Urine Creatinine (0.1-20.0) mg/dL 03/14/22 03/15/22 03/15/22 Range/Units 22:27 05:40 05:40 WBC 13.3 H (4.5-11.0) K/mm3 RBC 3.47 L (3.65-5.03) M/mm3 Hgb 9.4 L (10.1-14.3) gm/dl Hct 29.5 L D (30.3-42.9) % MCH 27 L (28-32) pg RDW 22.8 H (13.2-15.2) % Seg Neutrophils % (40.0-70.0) % Potassium 3.3 L (3.6-5.0) mmol/L Carbon Dioxide 21 L (22-30) mmol/L BUN 4 L (7-17) mg/dL Creatinine 0.4 L (0.6-1.2) mg/dL Uric Acid (3.5-7.6) mg/dL Calcium 8.3 L (8.4-10.2) mg/dL Magnesium 1.50 L (1.7-2.3) mg/dL Alkaline Phosphatase 141 H (35-129) units/L Lactate Dehydrogenase (91-180) units/L Albumin 3.7 L (3.9-5) g/dL Urine pH (5.0-7.0) Urine Creatinine (0.1-20.0) mg/dL
[2022-02-08] MEDS: FERROUS SULFATE 325 MG TAB PO SCH (10:14)
[2022-02-08] MEDS: PRENATAL VIT27-FE FUMARATE-FOLIC ACID VIT TAB PO SCH (10:14)
[2022-02-08] MEDS: DOCUSATE SODIUM 100 MG CAP PO SCH (10:14)
--- NOTE | 2022-02-08 19:13 | Event Note ---
Date: 02/08/22 Pt's creatinine level was noted to be 0.4 and her K+ level was 3.3 on yesterday. Todays Mg level is 4. Dr Higgins was consulted and pt's Mg and fluids were d/c'd. B/p is stable. Nurse was notified to transfer pt to pp and continue monitoring her status.
[2022-02-08] MEDS ORDERED: PROMETHAZINE 25 MG TAB PO PRN (19:19)
[2022-02-08] MEDS ORDERED: oxyCODONE /ACETAMINOPHEN 5-325MG TAB PO PRN (19:19)
[2022-02-08] MEDS ORDERED: MAGNESIUM HYDROXIDE (MOM) ORAL LIQD UDC PO PRN (19:19)
[2022-02-08] MEDS ORDERED: LANOLIN/ZINC/DIMETHICONE (LANSINOH) 7 GM TP PRN (19:19)
[2022-02-08] MEDS ORDERED: diphenhydrAMINE 25 MG CAP PO PRN (19:19)
[2022-02-08] MEDS ORDERED: PROMETHAZINE 25 MG RECT SUPP PR PRN (19:19)
[2022-02-08] MEDS ORDERED: WITCH HAZEL/ GLYCERIN PAD TP PRN (19:19)
[2022-02-08] MEDS ORDERED: ONDANSETRON 4 MG/2 ML INJ IV PRN (19:19)
[2022-02-08] MEDS ORDERED: ACETAMINOPHEN 325 MG TAB PO PRN (19:19)
[2022-02-09 06:08] LABS: Hematocrit 28.4 % (30.3-42.9); Hemoglobin 9.4 gm/dl (10.1-14.3)
[2022-02-09] MEDS: FERROUS SULFATE 325 MG TAB PO SCH (09:18)
[2022-02-09] MEDS: DOCUSATE SODIUM 100 MG CAP PO SCH (09:18)
[2022-02-09] MEDS: PRENATAL VIT27-FE FUMARATE-FOLIC ACID VIT TAB PO SCH (09:18)
--- NOTE | 2022-02-09 13:15 | Progress Note ---
Assessment and Plan PPD#2 with preeclampsia and now BP wnl without meds 1. routine care 2. Repeat CMP results pending 3. Consider discharge later this pm if pt remains stable. Highest BP x1 earlier 150/90's Subjective Date of service: 02/09/22 Principal diagnosis: PPD#2 with preeclampsia Interval history: pt has no complaints. Denies headache. Denies pelvic pain. Pt is breast and bottle feed. Vag bleed less than a period and contraception undecided. Objective - Constitutional Vitals: Vital Signs - 12hr 02/09/22 02/09/22 02/09/22 04:32 04:53 08:00 Temperature 98.0 F Pulse Rate 88 Respiratory 20 Rate Blood Pressure 129/79 Blood Pressure [Right] O2 Sat by Pulse 100 Oximetry O2 Sat by Pulse 99 Oximetry [ Anterior Bilateral Throughout] 02/09/22 02/09/22 02/09/22 08:17 09:53 12:43 Temperature 98.2 F 98.0 F 98.1 F Pulse Rate 73 101 H Respiratory 18 18 20 Rate Blood Pressure 152/89 138/76 Blood Pressure 128/67 [Right] O2 Sat by Pulse 99 100 Oximetry O2 Sat by Pulse Oximetry [ Anterior Bilateral Throughout] General appearance: Present: no acute distress - Neck Neck: normal ROM - Respiratory Respiratory effort: normal - Breasts Breasts: deferred - Cardiovascular Rhythm: regular Extremities: No edema - Gastrointestinal General gastrointestinal: Present: soft, non-tender - Genitourinary Female genitourinary: other (Fundus firm 1cm below the umbilicus) - Integumentary Integumentary: warm - Neurologic Neurologic: moves all extremities - Psychiatric Psychiatric: cooperative - Labs CBC & Chem 7: 02/09/22 05:53 02/07/22 22:27 Labs: Abnormal lab results 02/08/22 02/09/22 Range/Units 16:19 05:53 Hgb 9.4 L (10.1-14.3) gm/dl Hct 28.4 L (30.3-42.9) % Magnesium 4.00 H (1.7-2.3) mg/dL Medications & Allergies - Medications Allergies/Adverse Reactions: Allergies No Known Allergies Allergy (Verified 01/30/22 16:41) Home Medications: Home Medications Medication Instructions Recorded Confirmed Last Taken Type Cyclobenzaprine [Flexeril] 10 mg PO TID PRN #15 tablet 03/07/18 02/07/22 Unknown Rx Ibuprofen [Motrin] 600 mg PO Q8H PRN #15 tablet 03/07/18 02/07/22 Unknown Rx Loratadine [Allergy] 10 mg PO QDAY #30 tablet 06/07/19 02/07/22 Unknown Rx predniSONE [Deltasone] 40 mg PO QDAY #8 tab 06/07/19 02/07/22 Unknown Rx Active Medications: Generic Name Dose Route Start Last Admin Trade Name Freq PRN Reason Stop Dose Admin Acetaminophen 650 mg 02/07/22 23:35 02/09/22 09:19 Acetaminophen 325 Mg Tab PO 650 mg Q4H PRN Administration Pain MILD(1-3)/Fever >100.5/YODER Acetaminophen 650 mg 02/08/22 19:19 Acetaminophen 325 Mg Tab PO Q4H PRN Pain MILD(1-3)/Fever >100.5/YODER Hydrocodone Bitart/Acetaminophen 2 each 02/07/22 23:35 Hydrocodone/Acetaminophen 5-325 Mg Tab PO Q6H PRN Pain, Moderate (4-6) Benzocaine/Menthol 1 spray 02/07/22 23:35 Benzocaine/Menthol 20/0.5% Top [place] 56 Gm TP PRN PRN Episiotomy Pain Bisacodyl 10 mg 02/08/22 19:19 Bisacodyl 10 Mg Rect Supp NJ BID PRN Constipation Diphenhydramine HCl 25 mg 02/08/22 19:19 Diphenhydramine 25 Mg Cap PO Q6H PRN Itching Docusate Sodium 100 mg 02/08/22 10:00 02/09/22 09:18 Docusate Sodium 100 Mg Cap PO 100 mg BID [facility] Administration Ferrous Sulfate 325 mg 02/08/22 10:00 02/09/22 09:18 Ferrous Sulfate 325 Mg Tab PO 325 mg QDAY [facility] Administration Lactated Ringer's 1,000 mls @ 125 mls/hr 02/07/22 13:15 02/08/22 18:59 Lactated Ringers IV 125 mls/hr DIRECT [facility] Administration Magnesium Sulfate 40 gm in 1,000 mls @ 50 mls/hr 02/07/22 22:00 02/08/22 18:59 Magnesium Sulfate 40gm/1000ml IV 2 gm/hr DIRECT [place] 50 mls/hr Administration 2 GM/HR Magnesium Hydroxide 30 ml 02/07/22 23:35 Magnesium Hydroxide (Mom) Oral Liqd Udc PO HS PRN Constipation Magnesium Hydroxide 30 ml 02/08/22 19:19 Magnesium Hydroxide (Mom) Oral Liqd Udc PO HS PRN Constipation Multi-Ingredient Ointment 1 applic 02/07/22 23:35 Lanolin/Zinc/Dimethicone (Lansinoh) 7 Gm TP PRN PRN Sore Nipples Multi-Ingredient Ointment 1 applic 02/08/22 19:19 02/09/22 09:19 Lanolin/Zinc/Dimethicone (Lansinoh) 7 Gm TP 1 applic PRN PRN Administration Sore Nipples Multivitamins/Iron/Calcium 1 each 02/08/22 10:00 02/09/22 09:18 [id number] Fumarate-Folic Acid Vit Tab PO 1 each QDAY [facility] Administration Ondansetron HCl 4 mg 02/07/22 23:35 Ondansetron 4 Mg/2 Ml Inj IV Q8H PRN Nausea And Vomiting Ondansetron HCl 4 mg 02/08/22 19:19 Ondansetron 4 Mg/2 Ml Inj IV Q8H PRN Nausea And Vomiting Oxycodone/Acetaminophen 1 tab 02/08/22 19:19 Oxycodone /Acetaminophen 5-325mg Tab PO Q6H PRN Pain, Moderate (4-6) Promethazine HCl 25 mg 02/08/22 19:19 Promethazine 25 Mg Rect Supp NJ Q6H PRN Nausea And Vomiting Promethazine HCl 25 mg 02/08/22 19:19 Promethazine 25 Mg Tab PO Q6H PRN Nausea And Vomiting Sodium Chloride 10 ml 02/08/22 20:00 Sodium Chloride 0.9% 10 Ml Flush Syringe IV 02/09/22 19:59 PRN NR Witch Celia/Glycerin 1 each 02/07/22 23:35 Witch Celia/ Glycerin Pad TP PRN PRN Hemorrhoid/cleansing/soothing Witch Celia/Glycerin 1 each 02/08/22 19:19 Witch Celia/ Glycerin Pad TP PRN PRN Hemorrhoid/cleansing/soothing
[2022-02-09 14:14] LABS: Alanine Aminotransferase 8 units/L (7-56); Albumin 3.3 g/dL (3.9-5); Blood Urea Nitrogen 4 mg/dL (7-17); Calcium 8.6 mg/dL (8.4-10.2); Hemolysis Index 7
[2022-02-09 14:15] LABS: BUN/Creatinine Ratio 13
[2022-02-09 16:53] VITALS: BP 139/83
--- NOTE | 2022-02-09 17:52 | Discharge Summary ---
Providers - Providers Date of Admission: 02/07/22 12:40 Date of discharge: 02/09/22 Attending physician: NATHALIE CAMPBELL MD Primary care physician: NATHALIE CAMPBELL MD Hospitalization Reason for admission: IUP at term (elevated BP, post dates) Delivery: Episiotomy: none Laceration: other (periurethral and repaired with vicryl by Dr. Huang) Other procedures: none complications: none Discharge diagnosis: IUP at term delivered [place] baby: female Hospital course: course uneventful with the highest BP 150/90's which nurse states pt had pain during that time. PIH labs wnl and pt denies headache and desired to go home and therefore discharged home on D#2 Condition at discharge: Good Disposition: 01 HOME / SELF CARE / HOMELESS Plan - Provider Discharge Summary Additional instructions: [] Smoking cessation referral if applicable(refer to patient education folder for contact #) [] Refer to [facility]'s [facility] Booklet Call your doctor immediately for: * Fever > 100.5 * Heavy vaginal bleeding ( >1 pad per hour) * Severe persistent headache * Shortness of breath * Reddened, hot, painful area to leg or breast * Drainage or odor from incision. * Keep incision clean and dry at all times and follow doctor's instructions regarding bathing/showering - Follow up plan Follow up: NATHALIE CAMPBELL MD [Primary Care Provider] - 7 Days Forms: [facility] Discharge Summary
== END 2022-02-09 18:55 | disposition home or self-care (01) | DRG 774 ==
LOC: TRG 12:39 → LD 12:40 → TRG 13:06 → OB 02-08 21:05
PROVIDERS: ADMIT Obstetrics & Gynecology; ATTEND Obstetrics & Gynecology
PROC: 10E0XZZ Delivery of Products of Conception, External Approach (ICD-10-PCS; principal; 2022-02-07)
PROC: 0UQMXZZ Repair Vulva, External Approach (ICD-10-PCS; 2022-02-07)
PROC: 3E033VJ Introduction of Other Hormone into Peripheral Vein, Percutaneous Approach (ICD-10-PCS; 2022-02-07)
DX: O14.14 Severe pre-eclampsia complicating childbirth (principal); O98.32 Other infections with a predominantly sexual mode of transmission complicating childbirth; O99.824 Streptococcus B carrier state complicating childbirth; Z3A.40 40 weeks gestation of pregnancy; Z37.0 Single live birth; Z20.822 Contact with and (suspected) exposure to COVID-19; A60.00 Herpesviral infection of urogenital system, unspecified; O71.82 Other specified trauma to perineum and vulva; O72.1 Other immediate postpartum hemorrhage; O66.0 Obstructed labor due to shoulder dystocia; Z83.3 Family history of diabetes mellitus; Z82.49 Family history of ischemic heart disease and other diseases of the circulatory system; Z80.1 Family history of malignant neoplasm of trachea, bronchus and lung; O90.81 Anemia of the puerperium
CPT/HCPCS: 36415; 59025; 80053; 81001; 82565; 82570; 83615; 83735; 84156; 84450; 84460; 84550; 85014; 85018; 85025; 85027; 86850; 86900; 86901; G0378; J3490; J0290; J2590; J3475; J7120; U0003

== ENCOUNTER 2022-03-24 04:07 | Emergency (ER) | payer MEDICAID ==
--- NOTE | 2022-03-24 10:22 | Ultrasound Report ---
ULTRASOUND PELVIS COMPLETE INDICATION / CLINICAL INFORMATION: 6 wks , heavy vag bleeing. TECHNIQUE: Transabdominal. Duplex Color Doppler used: Yes. COMPARISON: None available FINDINGS: UTERUS: Present. - Appearance (if present): Retroflexed. No significant abnormality. - Size in cm (if present): 14 x 7 x 7. - Endometrial Complex (if present): There are a few scattered echogenic foci throughout the endometri um but no evidence for mass lesion or fluid. The uterus is otherwise homogeneous and unremarkable.. T hickness in cm (if measured) = 1.1 - Mass lesions: None. - Additional findings: None. RIGHT ADNEXA: No significant ovarian cyst or mass. Normal color Doppler blood flow. The right ovary m easures 3.3 x 2.5 x 1.6 cm. LEFT ADNEXA: No significant ovarian cyst or mass. Normal color Doppler blood flow. The left ovary gisell sures 3.0 x 1.5 x 2.1 cm. URINARY BLADDER: No significant abnormality. FREE FLUID: None. ADDITIONAL FINDINGS: None. IMPRESSION: No significant abnormality. Signer Name: Hansel Conn Jr, MD Signed: 03/24/2022 10:17 AM Workstation Name: [id number]
[2022-03-24 10:36] LABS: Basophils # (Auto) 0.1 K/mm3 (0.0-0.1); Basophils % (Auto) 1.1 % (0.0-1.8); Eosinophils # (Auto) 0.3 K/mm3 (0.0-0.4); Eosinophils % (Auto) 3.7 % (0.0-4.3); Hematocrit 38.5 % (30.3-42.9); Hemoglobin 12.3 gm/dl (10.1-14.3); Lymphocytes # (Auto) 1.9 K/mm3 (1.2-5.4); Lymphocytes % (Auto) 25.2 % (13.4-35.0); Mean Corpuscular HGB Conc 32 % (30-34); Mean Corpuscular Volume 88 fl (79-97); Monocytes # (Auto) 0.4 K/mm3 (0.0-0.8); Monocytes % (Auto) 5.8 % (0.0-7.3); Platelet Count 240 K/mm3 (140-440); Red Blood Count 4.38 M/mm3 (3.65-5.03); Red Cell Distribution Width 19.1 % (13.2-15.2)
--- NOTE | 2022-03-24 11:28 | Emergency Department Report ---
ED Female HPI - General Chief complaint: Vaginal Bleeding Stated complaint: DISCHARGE Time Seen by Provider: 03/24/22 08:57 Source: patient Mode of arrival: Ambulatory Limitations: No Limitations - History of Present Illness Initial comments: 31-year-old female with past medical history of asthma status post vaginal delivery 6 weeks ago presents to the hospital complaining of vaginal bleeding. Patient states she initially stopped bleeding and restarted 4 to 5 days ago. Patient is concerned his bleeding is heavy. She is not changing more than 1 pad per hour. She has mild suprapubic cramping abdominal pain. Patient is breast and bottlefeeding. no fever reported DIRECTOR PROCESS with [facility] - Related Data Previous Rx's Medication Instructions Recorded Last Taken Type Cyclobenzaprine [Flexeril] 10 mg PO TID PRN #15 tablet 03/07/18 Unknown Rx Ibuprofen [Motrin] 600 mg PO Q8H PRN #15 tablet 03/07/18 Unknown Rx Loratadine [Allergy] 10 mg PO QDAY #30 tablet 06/07/19 Unknown Rx predniSONE [Deltasone] 40 mg PO QDAY #8 tab 06/07/19 Unknown Rx Allergies Allergy/AdvReac Type Severity Reaction Status Date / Time No Known Allergies Allergy Verified 03/24/22 04:15 ED Review of Systems ROS: Stated complaint: DISCHARGE Other details as noted in HPI Comment: All other systems reviewed and negative ED Past Medical Hx - Past Medical History Previous Medical History?: Yes Hx Hypertension: No Hx Congestive Heart Failure: No Hx Diabetes: No Hx Deep Vein Thrombosis: No Hx Renal Disease: No Hx Sickle Cell Disease: No Hx Seizures: No Hx Asthma: Yes Hx COPD: No Hx HIV: No Additional medical history: Vaginal dleivery x 2 - Surgical History Past Surgical History?: No - Social History Smoking Status: Never Smoker Substance Use Type: Marijuana - Medications Home Medications: Home Medications Medication Instructions Recorded Confirmed Last Taken Type Cyclobenzaprine [Flexeril] 10 mg PO TID PRN #15 tablet 03/07/18 02/07/22 Unknown Rx Ibuprofen [Motrin] 600 mg PO Q8H PRN #15 tablet 03/07/18 02/07/22 Unknown Rx Loratadine [Allergy] 10 mg PO QDAY #30 tablet 06/07/19 02/07/22 Unknown Rx predniSONE [Deltasone] 40 mg PO QDAY #8 tab 06/07/19 02/07/22 Unknown Rx ED Physical Exam - General Limitations: No Limitations - Other Other exam information: General: No acute distress Head: Atraumatic Eyes: normal appearance ENT: Moist mucous membranes Neck: Normal appearance, no midline tenderness Chest: Clear to auscultation bilaterally CV: Regular rate and rhythm Abdomen: Soft, normal bowel sounds, nontender, nondistended, no rebound or guarding Back: Normal inspection Extremity: Normal inspection, full range of motion Neuro: Alert O x 3, no facial asymmetry, speech clear, no gross motor sensory deficit Psych: Appropriate behavior Skin: No rash ED Course Vital Signs 03/24/22 08:59 Temperature 97.0 F L Pulse Rate 66 Respiratory 19 Rate Blood Pressure 130/82 [Left] O2 Sat by Pulse 100 Oximetry ED Medical Decision Making - Lab Data Result diagrams: 03/24/22 09:54 Lab Results 03/24/22 03/24/22 Range/Units 09:54 09:54 WBC 7.6 (4.5-11.0) K/mm3 RBC 4.38 (3.65-5.03) M/mm3 Hgb 12.3 (10.1-14.3) gm/dl Hct 38.5 (30.3-42.9) % MCV 88 (79-97) fl MCH 28 (28-32) pg MCHC 32 (30-34) % RDW 19.1 H (13.2-15.2) % Plt Count 240 (140-440) K/mm3 Lymph % (Auto) 25.2 (13.4-35.0) % Rowan % (Auto) 5.8 (0.0-7.3) % Eos % (Auto) 3.7 (0.0-4.3) % Baso % (Auto) 1.1 (0.0-1.8) % Lymph # (Auto) 1.9 (1.2-5.4) K/mm3 Rowan # (Auto) 0.4 (0.0-0.8) K/mm3 Eos # (Auto) 0.3 (0.0-0.4) K/mm3 Baso # (Auto) 0.1 (0.0-0.1) K/mm3 Seg Neutrophils % 64.2 (40.0-70.0) % Seg Neutrophils # 4.9 (1.8-7.7) K/mm3 Blood Type B POSITIVE Antibody Screen Negative - Radiology Data Radiology results: report reviewed ULTRASOUND PELVIS COMPLETE INDICATION / CLINICAL INFORMATION: 6 wks , heavy vag bleeing. TECHNIQUE: Transabdominal. Duplex Color Doppler used: Yes. COMPARISON: None available FINDINGS: UTERUS: Present. - Appearance (if present): Retroflexed. No significant abnormality. - Size in cm (if present): 14 x 7 x 7. - Endometrial Complex (if present): There are a few scattered echogenic foci throughout the endometrium but no evidence for mass lesion or fluid. The uterus is otherwise homogeneous and unremarkable.. Thickness in cm (if measured) = 1.1 - Mass lesions: None. - Additional findings: None. RIGHT ADNEXA: No significant ovarian cyst or mass. Normal color Doppler blood flow. The right ovary measures 3.3 x 2.5 x 1.6 cm. LEFT ADNEXA: No significant ovarian cyst or mass. Normal color Doppler blood flow. The left ovary measures 3.0 x 1.5 x 2.1 cm. URINARY BLADDER: No significant abnormality. FREE FLUID: None. ADDITIONAL FINDINGS: None. IMPRESSION: No significant abnormality. - Medical Decision Making 31-year-old female presents to the hospital complaining of heavy vaginal bleeding status post vaginal delivery 6 weeks ago. No signs of cardiopulmonary. H&H normal. Ultrasound unremarkable. Patient instructed to follow-up with her [facility] doctor. She plans to go there after discharge Critical Care Time: No Critical care attestation.: If time is entered above; I have spent that time in minutes in the direct care of this critically ill patient, excluding procedure time. ED Disposition Clinical Impression: bleeding Disposition: 01 HOME / SELF CARE / HOMELESS Is pt being admited?: No Condition: Stable Instructions: Hemorrhage Additional Instructions: Take Motrin as needed for pain. Take multivitamins with iron. Follow-up with your [facility] doctor. Return if symptoms worsen as indicated by your discharge instructions. Referrals: [facility] [Provider Group] - 3-5 Days Time of Disposition: 11:41
[2022-03-24 11:55] VITALS: BP 151/84
== END 2022-03-24 12:02 | disposition home or self-care (01) ==
LOC: ED 04:07
DX: O72.1 Other immediate postpartum hemorrhage (principal); F12.90 Cannabis use, unspecified, uncomplicated; J45.909 Unspecified asthma, uncomplicated
CPT/HCPCS: 36415; 76856; 85025; 86850; 86900; 86901; 99284

== ENCOUNTER 2022-07-02 16:58 | Emergency (ER) | payer MEDICAID ==
[2022-07-02] MEDS ORDERED: IBUPROFEN 800 MG TAB PO ONE (22:16)
[2022-07-03 02:24] LABS: Basophils # (Auto) 0.1 K/mm3 (0.0-0.1); Basophils % (Auto) 1.2 % (0.0-1.8); Eosinophils # (Auto) 0.2 K/mm3 (0.0-0.4); Eosinophils % (Auto) 2.3 % (0.0-4.3); Hematocrit 37.4 % (30.3-42.9); Hemoglobin 11.9 gm/dl (10.1-14.3); Lymphocytes # (Auto) 2.4 K/mm3 (1.2-5.4); Lymphocytes % (Auto) 25.6 % (13.4-35.0); Mean Corpuscular HGB Conc 32 % (30-34); Mean Corpuscular Volume 86 fl (79-97); Monocytes # (Auto) 0.4 K/mm3 (0.0-0.8); Monocytes % (Auto) 4.5 % (0.0-7.3); Platelet Count 314 K/mm3 (140-440); Red Blood Count 4.34 M/mm3 (3.65-5.03)
[2022-07-03 02:43] LABS: Alanine Aminotransferase 15 units/L (7-56); Albumin 4.4 g/dL (3.9-5); Blood Urea Nitrogen 13 mg/dL (7-17); Calcium 9.7 mg/dL (8.4-10.2); Hemolysis Index 6
[2022-07-03 02:53] LABS: BUN/Creatinine Ratio 26
[2022-07-03 03:15] LABS: Bilirubin,Urine Negative (Negative); Blood,Urine Large (Negative); Color,Urine Yellow (Yellow)
[2022-07-03 03:16] LABS: Urobilinogen,Urine 0.2 mg/dL (<2.0)
[2022-07-03 03:35] LABS: Bacteria,Urine 1+ /HPF (Negative); Mucus,Urine 1+ /HPF
--- NOTE | 2022-07-03 06:10 | Emergency Department Report ---
<CHE JANE - Last Filed: 07/03/22 06:06> ED Female HPI - General Chief complaint: Vaginal Bleeding Stated complaint: BLEEDING Source: patient Mode of arrival: Ambulatory Limitations: No Limitations - History of Present Illness Initial comments: Patient is a A0 31-year-old -Serbian female with no past medical history and was approximately 3 to 4 weeks gestation presents to the ED with complaint of acute onset persistent pelvic pain and heavy vaginal bleeding for the last 12 hours. Patient states that her LMP was 09 May 2022. Patient states that in the last 8 hours she has had to change multiple pads for her bleeding. Patient denies lightheadedness, dizziness, syncope, fever, chills, nausea, vomiting, diarrhea, dysuria, urinary frequency and urgency, low back pain, chest pain or shortness of breath. MD Complaint: vaginal bleeding, pelvic pain (Suprapubic pain) -: Sudden, hour(s) (12) Location: suprapubic, other (vaginal) Radiation: non-radiating Severity: moderate Severity scale (0 -10): 4 Quality: cramping, aching Consistency: constant Improves with: none Worsens with: none Are you Now?: Yes (Approximately 3-4 weeks gestation) Last Menstrual Period: 06/13/22 EDC: 03/20/23 Associated Symptoms: denies other symptoms, vaginal bleeding, abdominal pain (suprapubic). denies: nausea/vomiting, fever/chills, headaches, loss of appetite, dysuria, hematuria, rash, seizure, shortness of breath, syncope - Related Data Sexually active: Yes : 3 Para: 2 A: 0 Previous Rx's Medication Instructions Recorded Last Taken Type Cyclobenzaprine [Flexeril] 10 mg PO TID PRN #15 tablet 03/07/18 Unknown Rx Ibuprofen [Motrin] 600 mg PO Q8H PRN #15 tablet 03/07/18 Unknown Rx Loratadine [Allergy] 10 mg PO QDAY #30 tablet 06/07/19 Unknown Rx predniSONE [Deltasone] 40 mg PO QDAY #8 tab 06/07/19 Unknown Rx Acetaminophen [Tylenol] 500 mg PO Q6HR PRN #40 tablet 07/03/22 Unknown Rx cephALEXin [Keflex] 500 mg PO Q6HR #40 capsule 07/03/22 Unknown Rx Allergies Allergy/AdvReac Type Severity Reaction Status Date / Time No Known Allergies Allergy Verified 07/02/22 17:26 ED Review of Systems Constitutional: denies: chills, fever Eyes: denies: eye pain, eye discharge, vision change ENT: denies: ear pain, throat pain Respiratory: denies: cough, shortness of breath, wheezing Cardiovascular: denies: chest pain, palpitations Endocrine: no symptoms reported Gastrointestinal: abdominal pain (suprapubic). denies: nausea, vomiting, diarrhea Genitourinary: abnormal menses (vaginal bleeding). denies: urgency, dysuria, discharge Musculoskeletal: denies: back pain, joint swelling, arthralgia Skin: denies: rash, lesions Neurological: denies: headache, weakness, paresthesias Psychiatric: denies: anxiety, depression Hematological/Lymphatic: denies: easy bleeding, easy bruising ED Past Medical Hx - Past Medical History Hx Hypertension: No Hx Congestive Heart Failure: No Hx Diabetes: No Hx Deep Vein Thrombosis: No Hx Renal Disease: No Hx Sickle Cell Disease: No Hx Seizures: No Hx Asthma: Yes Hx COPD: No Hx HIV: No Additional medical history: Vaginal dleivery x 2 - Social History Smoking Status: Current Every Day Smoker Substance Use Type: Marijuana - Medications Home Medications: Home Medications Medication Instructions Recorded Confirmed Last Taken Type Cyclobenzaprine [Flexeril] 10 mg PO TID PRN #15 tablet 03/07/18 02/07/22 Unknown Rx Ibuprofen [Motrin] 600 mg PO Q8H PRN #15 tablet 03/07/18 02/07/22 Unknown Rx Loratadine [Allergy] 10 mg PO QDAY #30 tablet 06/07/19 02/07/22 Unknown Rx predniSONE [Deltasone] 40 mg PO QDAY #8 tab 06/07/19 02/07/22 Unknown Rx Acetaminophen [Tylenol] 500 mg PO Q6HR PRN #40 tablet 07/03/22 Unknown Rx cephALEXin [Keflex] 500 mg PO Q6HR #40 capsule 07/03/22 Unknown Rx ED Physical Exam - General Limitations: No Limitations General appearance: alert, in no apparent distress - Head Head exam: Present: atraumatic, normocephalic, normal inspection - Eye Eye exam: Present: normal appearance, PERRL, EOMI Pupils: Present: normal accommodation - ENT ENT exam: Present: normal exam, normal orophraynx, mucous membranes moist, TM's normal bilaterally, normal external ear exam - Neck Neck exam: Present: normal inspection, full ROM. Absent: tenderness - Respiratory Respiratory exam: Present: normal lung sounds bilaterally. Absent: respiratory distress, wheezes, rales, rhonchi, chest wall tenderness, accessory muscle use, decreased breath sounds, prolonged expiratory - Cardiovascular Cardiovascular Exam: Present: regular rate, normal rhythm, normal heart sounds. Absent: systolic murmur, diastolic murmur, rubs, gallop - GI/Abdominal GI/Abdominal exam: Present: soft, normal bowel sounds. Absent: tenderness, guarding, rebound, hyperactive bowel sounds, hypoactive bowel sounds, organomegaly, mass - Extremities Exam Extremities exam: Present: normal inspection, full ROM, normal capillary refill. Absent: tenderness, pedal edema, joint swelling - Back Exam Back exam: Present: normal inspection, full ROM. Absent: tenderness, CVA tenderness (R), CVA tenderness (L), muscle spasm, paraspinal tenderness, vertebral tenderness - Neurological Exam Neurological exam: Present: alert, oriented X3, CN II-XII intact, normal gait, r eflexes normal - Psychiatric Psychiatric exam: Present: normal affect, normal mood - Skin Skin exam: Present: warm, dry, intact, normal color. Absent: rash ED Medical Decision Making - Lab Data Result diagrams: 07/03/22 02:13 07/03/22 02:13 - Radiology Data Radiology results: report reviewed, image reviewed - Medical Decision Making This is a A0 31-year-old -Serbian female with no past medical history and was approximately 3 to 4 weeks gestation presents to the ED with complaint of acute onset persistent pelvic pain and heavy vaginal bleeding for the last 12 hours. Patient states that her LMP was 09 May 2022. Patient states that in the last 8 hours she has had to change multiple pads for her bleeding. In the ED, patient is alert and oriented x3 and is not in any distress. Lab test results were reviewed and are all nonactionable except for mild urinary tract infection, and hCG quant of 771.6. Patient was treated for pain in the ED with Tylenol. Transvaginal ultrasound is pending at this time. Patient care was transferred to my colleague Mr. Alban Araujo at shift change at 0700 hrs. He shall review the imaging report and disposition the patient ac cordingly. - Differential Diagnosis Threatened miscarriage; Ectopic preg; UTI; Subchor. bleed; Ovarian cyst ED Disposition Clinical Impression: Vaginal bleeding affecting early , Threatened miscarriage in early , Abdominal pain during in first trimester, Acute urinary tract infection Disposition: 01 HOME / SELF CARE / HOMELESS Condition: Stable Instructions: Abdominal Pain During , Girf-lg-[id number], Urinary Tract Infe ction, Adult, [id number]-Dcsb, Threatened Miscarriage, [id number], Vaginal Bleeding During , First Trimester, Dhir-xb-[id number], Ectopic , Whze-fk-Wquv Additional Instructions: Follow-up with a OBGYN doctor in 2 days or if symptoms worsen and continue return to emergency room as soon as possible. Prescriptions: Acetaminophen [Tylenol] 500 mg PO Q6HR PRN #40 tablet PRN Reason: Pain , Severe (7-10) cephALEXin [Keflex] 500 mg PO Q6HR #40 capsule Referrals: OBGYN,[facility] [Other] - 07/05/22 Time of Disposition: 06:11 Print Language: KYRGYZ <ALBAN ARAUJO - Last Filed: 07/03/22 08:31> ED Review of Systems ROS: Stated complaint: BLEEDING Other details as noted in HPI ED Course Vital Signs 07/02/22 07/03/22 17:24 06:50 Temperature 97.6 F 98.6 F Pulse Rate 115 H 94 H Respiratory 18 18 Rate Blood Pressure 173/71 158/84 [Left] O2 Sat by Pulse 99 100 Oximetry ED Medical Decision Making - Lab Data Result diagrams: 07/03/22 02:13 07/03/22 02:13 Lab Results 07/03/22 07/03/22 07/03/22 Range/Units 02:13 02:13 02:13 WBC 9.3 (4.5-11.0) K/mm3 RBC 4.34 (3.65-5.03) M/mm3 Hgb 11.9 (10.1-14.3) gm/dl Hct 37.4 (30.3-42.9) % MCV 86 (79-97) fl MCH 28 (28-32) pg MCHC 32 (30-34) % RDW 15.0 (13.2-15.2) % Plt Count 314 (140-440) K/mm3 Lymph % (Auto) 25.6 (13.4-35.0) % Castro % (Auto) 4.5 (0.0-7.3) % Eos % (Auto) 2.3 (0.0-4.3) % Baso % (Auto) 1.2 (0.0-1.8) % Lymph # (Auto) 2.4 (1.2-5.4) K/mm3 Castro # (Auto) 0.4 (0.0-0.8) K/mm3 Eos # (Auto) 0.2 (0.0-0.4) K/mm3 Baso # (Auto) 0.1 (0.0-0.1) K/mm3 Seg Neutrophils % 66.4 (40.0-70.0) % Seg Neutrophils # 6.2 (1.8-7.7) K/mm3 Sodium 140 (137-145) mmol/L Potassium 3.7 (3.6-5.0) mmol/L Chloride 104.4 (98-107) mmol/L Carbon Dioxide 23 (22-30) mmol/L Anion Gap 16 mmol/L BUN 13 (7-17) mg/dL Creatinine 0.5 L (0.6-1.2) mg/dL Estimated GFR > 60 ml/min BUN/Creatinine Ratio 26 % Glucose 121 H (65-100) mg/dL Calcium 9.7 (8.4-10.2) mg/dL Total Bilirubin < 0.20 (0.1-1.2) mg/dL AST 17 (5-40) units/L ALT 15 (7-56) units/L Alkaline Phosphatase 103 (35-129) units/L Total Protein 7.8 (6.3-8.2) g/dL Albumin 4.4 (3.9-5) g/dL Albumin/Globulin Ratio 1.3 % HCG, Quant 771.6 H (0-4) mIU/mL Urine Color (Yellow) Urine Turbidity (Clear) Urine pH (5.0-7.0) Ur Specific [place] (1.003-1.030) Urine Protein (Negative) mg/dL Urine Glucose (UA) (Negative) mg/dL Urine Ketones (Negative) mg/dL Urine Blood (Negative) Urine Nitrite (Negative) Urine Bilirubin (Negative) Urine Urobilinogen (<2.0) mg/dL Ur Leukocyte Esterase (Negative) Urine WBC (Auto) (0.0-6.0) /HPF Urine RBC (Auto) (0.0-6.0) /HPF U Epithel Cells (Auto) (0-13.0) /HPF Urine Bacteria (Auto) (Negative) /HPF Urine Mucus /HPF Blood Type 07/03/22 07/03/22 Range/Units 02:13 Unknown WBC (4.5-11.0) K/mm3 RBC (3.65-5.03) M/mm3 Hgb (10.1-14.3) gm/dl Hct (30.3-42.9) % MCV (79-97) fl MCH (28-32) pg MCHC (30-34) % RDW (13.2-15.2) % Plt Count (140-440) K/mm3 Lymph % (Auto) (13.4-35.0) % Castro % (Auto) (0.0-7.3) % Eos % (Auto) (0.0-4.3) % Baso % (Auto) (0.0-1.8) % Lymph # (Auto) (1.2-5.4) K/mm3 Castro # (Auto) (0.0-0.8) K/mm3 Eos # (Auto) (0.0-0.4) K/mm3 Baso # (Auto) (0.0-0.1) K/mm3 Seg Neutrophils % (40.0-70.0) % Seg Neutrophils # (1.8-7.7) K/mm3 Sodium (137-145) mmol/L Potassium (3.6-5.0) mmol/L Chloride (98-107) mmol/L Carbon Dioxide (22-30) mmol/L Anion Gap mmol/L BUN (7-17) mg/dL Creatinine (0.6-1.2) mg/dL Estimated GFR ml/min BUN/Creatinine Ratio % Glucose (65-100) mg/dL Calcium (8.4-10.2) mg/dL Total Bilirubin (0.1-1.2) mg/dL AST (5-40) units/L ALT (7-56) units/L Alkaline Phosphatase (35-129) units/L Total Protein (6.3-8.2) g/dL Albumin (3.9-5) g/dL Albumin/Globulin Ratio % HCG, Quant (0-4) mIU/mL Urine Color Yellow (Yellow) Urine Turbidity Clear (Clear) Urine pH 5.0 (5.0-7.0) Ur Specific [place] 1.035 H (1.003-1.030) Urine Protein 30 mg/dl (Negative) mg/dL Urine Glucose (UA) Negative (Negative) mg/dL Urine Ketones Negative (Negative) mg/dL Urine Blood Large A (Negative) Urine Nitrite Negative (Negative) Urine Bilirubin Negative (Negative) Urine Urobilinogen 0.2 (<2.0) mg/dL Ur Leukocyte Esterase Negative (Negative) Urine WBC (Auto) 10.0 H (0.0-6.0) /HPF Urine RBC (Auto) 2.0 (0.0-6.0) /HPF U Epithel Cells (Auto) 16.0 H (0-13.0) /HPF Urine Bacteria (Auto) 1+ (Negative) /HPF Urine Mucus 1+ /HPF Blood Type B POSITIVE - Radiology Data [facility] [address] [id number] Ultrasound Report Signed Patient: ALEXIS RUSH MR#: [id number] : 1990 Acct:[id number] Age/Sex: 31 / F ADM Date: 07/02/22 Loc: ED Attending Dr: Ordering Physician: ZANDRA BLAND Date of Service: 07/03/22 Procedure(s): US OB <= 14 weeks fetus Accession Number(s): [id number] cc: ZANDRA BLAND ULTRASOUND OBSTETRIC REASON FOR EXAM: pelvic pain, vaginal bleeding TECHNIQUE: Transabdominal and transvaginal ultrasound was performed to evaluate a first trimester . COMPARISON: None available. FINDINGS: Uterus: The uterus measures 11.1 x 6.6 x 6.6 cm. Endometrial stripe measures 7 mm. 4 mm cyst in the region of the cervix likely reflects nabothian cyst. Right ovary: The right ovary measures 4.7 x 2.8 x 2.1 cm. The right ovary demonstrates an unremarkable sonographic appearance and normal doppler flow. Left ovary: The left ovary measures 3.7 x 1.6 x 1.9 cm. The left ovary demonstrates a normal sonographic appearance and normal doppler flow. Cul-de-sac: There is no free fluid. IMPRESSION: No intrauterine identified. Findings may reflect early normal or spontaneous . Recommend continued follow-up with beta hCG and pelvic sonography, as clinically indicated. Signer Name: Matthew Johnson MD Signed: 07/03/2022 7:40 AM Workstation Name: [id number] Transcribed By: BON Dictated By: MATTHEW JOHNSON MD Electronically Authenticated By: MATTHEW JOHNSON MD Signed Date/Time: 07/03/22739 DD/ 5 TD/TT: - Medical Decision Making Patient was urged originally seen by ZANDRA Bland and was signed out to me for pending ultrasound results. Patient is stable and was examined by me. Normal abdominal exam. US OB obtained and dictated by the radiologist. Ua obtained. Quantative serum test obtained. Patient notified of the US report with no questions noted by the patient. Patient was instructed f/u with [facility] in 2 days. RH factor positive. Patient was given strict precautions and education on ectopic . At time of discharge, the patient does not seem toxic or ill in appearance. No acute signs of distress noted. Patient agrees to discharge treatment plan of care. No further questions noted by the patient. Critical care attestation.: If time is entered above; I have spent that time in minutes in the direct care of this critically ill patient, excluding procedure time. ED Disposition Is pt being admited?: No Does the pt Need Aspirin: No
--- NOTE | 2022-07-03 07:44 | Ultrasound Report ---
ULTRASOUND OBSTETRIC REASON FOR EXAM: pelvic pain, vaginal bleeding TECHNIQUE: Transabdominal and transvaginal ultrasound was performed to evaluate a first trimester pre gnancy. COMPARISON: None available. FINDINGS: Uterus: The uterus measures 11.1 x 6.6 x 6.6 cm. Endometrial stripe measures 7 mm. 4 mm cyst in the r egion of the cervix likely reflects nabothian cyst. Right ovary: The right ovary measures 4.7 x 2.8 x 2.1 cm. The right ovary demonstrates an unremarkabl e sonographic appearance and normal doppler flow. Left ovary: The left ovary measures 3.7 x 1.6 x 1.9 cm. The left ovary demonstrates a normal sonograp hic appearance and normal doppler flow. Cul-de-sac: There is no free fluid. IMPRESSION: No intrauterine identified. Findings may reflect early normal or spontaneous abor tion. Recommend continued follow-up with beta hCG and pelvic sonography, as clinically indicated. Signer Name: Jamar Johnson MD Signed: 07/03/2022 7:40 AM Workstation Name: [id number]
[2022-07-03 08:51] VITALS: BP 134/78
== END 2022-07-03 08:50 | disposition home or self-care (01) ==
LOC: ED 16:58
DX: O20.0 Threatened abortion (principal); O26.891 Other specified pregnancy related conditions, first trimester; R10.2 Pelvic and perineal pain; O23.41 Unspecified infection of urinary tract in pregnancy, first trimester; Z3A.01 Less than 8 weeks gestation of pregnancy; J45.909 Unspecified asthma, uncomplicated
CPT/HCPCS: 36415; 76801; 76817; 80053; 81001; 84702; 85025; 86900; 86901; 87086; 99284

== ENCOUNTER 2022-07-12 17:29 | Emergency (ER) | payer MEDICAID ==
[2022-07-12 19:59] LABS: Basophils # (Auto) 0.1 K/mm3 (0.0-0.1); Basophils % (Auto) 0.7 % (0.0-1.8); Eosinophils # (Auto) 0.3 K/mm3 (0.0-0.4); Eosinophils % (Auto) 3.6 % (0.0-4.3); Hematocrit 31.1 % (30.3-42.9); Hemoglobin 10.2 gm/dl (10.1-14.3); Lymphocytes # (Auto) 2.3 K/mm3 (1.2-5.4); Lymphocytes % (Auto) 23.8 % (13.4-35.0); Mean Corpuscular HGB Conc 33 % (30-34); Mean Corpuscular Volume 86 fl (79-97); Monocytes # (Auto) 0.5 K/mm3 (0.0-0.8); Monocytes % (Auto) 5.1 % (0.0-7.3); Platelet Count 371 K/mm3 (140-440); Red Blood Count 3.62 M/mm3 (3.65-5.03); Red Cell Distribution Width 14.7 % (13.2-15.2)
[2022-07-12 20:28] LABS: Blood Urea Nitrogen 7 mg/dL (7-17); Hemolysis Index 1
[2022-07-12 20:35] LABS: BUN/Creatinine Ratio 14
--- NOTE | 2022-07-12 21:21 | Ultrasound Report ---
US OB <= 14 WEEKS FETUS US OB TRANSVAGINAL INDICATION / CLINICAL INFORMATION: Vaginal bleeding. COMPARISON: Ultrasound 07/03/2022 FINDINGS: As on the prior, there is no sonographic evidence of intrauterine . Myometrium is heterogene ous and there is mild shadowing in the myometrium. This could be seen in the setting of adenomyosis. Right ovary contains a small cystic focus which measures 1 cm. There is a punctate echogenic focus wi thin this which is of uncertain etiology/significance. Left ovary is unremarkable. Adjacent to the left ovary the region of the left adnexa there is a somewhat tubular hypoechoic focus . This is concerning for hydrosalpinx. IMPRESSION: 1. Adenoma prior from 07/03/2022, there is no sonographic evidence of intrauterine . Dilated l eft fallopian tube with complex fluid. This could be hemorrhage. While I do not see an extrauterine e ctopic , the presence of a hydrosalpinx in the setting of a positive test could be seen in the setting of ectopic . Correlation with serial beta hCG levels is recommended. 2. 1 cm right ovarian cyst contains a punctate echogenic focus. This may be a follicle. Intraovarian ectopic pregnancies are exceedingly rare. 3. The myometrium is somewhat heterogeneous which could be seen in the setting of adenomyosis. I discussed these findings with the emergency room physician at the conclusion of the exam. Signer Name: Milton Ortega MD Signed: 07/12/2022 9:16 PM Workstation Name: [id number]
--- NOTE | 2022-07-13 00:32 | Emergency Department Report ---
ED General Adult HPI - General Chief complaint: Urogenital-Female Stated complaint: ABD PAIN/ Time Seen by Provider: 07/13/22 00:06 Source: patient Mode of arrival: Ambulatory Limitations: No Limitations - History of Present Illness Initial comments: Patient is a 31-year-old female sent by OB for methotrexate injection for potential ectopic . Patient reports left adnexal pain for the past several days with outside ultrasound showing no IUP however increasing hCG values. Severity scale (0 -10): 5 - Related Data Previous Rx's Medication Instructions Recorded Last Taken Type Cyclobenzaprine [Flexeril] 10 mg PO TID PRN #15 tablet 03/07/18 Unknown Rx Ibuprofen [Motrin] 600 mg PO Q8H PRN #15 tablet 03/07/18 Unknown Rx Loratadine [Allergy] 10 mg PO QDAY #30 tablet 06/07/19 Unknown Rx predniSONE [Deltasone] 40 mg PO QDAY #8 tab 06/07/19 Unknown Rx Acetaminophen [Tylenol] 500 mg PO Q6HR PRN #40 tablet 07/03/22 Unknown Rx cephALEXin [Keflex] 500 mg PO Q6HR #40 capsule 07/03/22 Unknown Rx Allergies Allergy/AdvReac Type Severity Reaction Status Date / Time No Known Allergies Allergy Verified 07/02/22 17:26 ED Review of Systems ROS: Stated complaint: ABD PAIN/ Other details as noted in HPI Constitutional: denies: chills, fever Respiratory: denies: cough, shortness of breath, wheezing Cardiovascular: denies: chest pain, palpitations Gastrointestinal: abdominal pain. denies: nausea, vomiting Musculoskeletal: denies: back pain, joint swelling, arthralgia Skin: denies: rash, lesions Neurological: denies: headache, weakness, paresthesias Psychiatric: denies: anxiety, depression ED Past Medical Hx - Past Medical History Hx Hypertension: No Hx Congestive Heart Failure: No Hx Diabetes: No Hx Deep Vein Thrombosis: No Hx Renal Disease: No Hx Sickle Cell Disease: No Hx Seizures: No Hx Asthma: Yes Hx COPD: No Hx HIV: No Additional medical history: Vaginal dleivery x 2 - Social History Smoking Status: Current Every Day Smoker Substance Use Type: Marijuana - Medications Home Medications: Home Medications Medication Instructions Recorded Confirmed Last Taken Type Cyclobenzaprine [Flexeril] 10 mg PO TID PRN #15 tablet 03/07/18 02/07/22 Unknown Rx Ibuprofen [Motrin] 600 mg PO Q8H PRN #15 tablet 03/07/18 02/07/22 Unknown Rx Loratadine [Allergy] 10 mg PO QDAY #30 tablet 06/07/19 02/07/22 Unknown Rx predniSONE [Deltasone] 40 mg PO QDAY #8 tab 06/07/19 02/07/22 Unknown Rx Acetaminophen [Tylenol] 500 mg PO Q6HR PRN #40 tablet 07/03/22 Unknown Rx cephALEXin [Keflex] 500 mg PO Q6HR #40 capsule 07/03/22 Unknown Rx ED Physical Exam - General Limitations: No Limitations General appearance: alert, in no apparent distress - Head Head exam: Present: atraumatic, normocephalic - Respiratory Respiratory exam: Present: normal lung sounds bilaterally. Absent: respiratory distress - Cardiovascular Cardiovascular Exam: Present: regular rate, normal rhythm, normal heart sounds - GI/Abdominal GI/Abdominal exam: Present: soft. Absent: distended, tenderness - Rectal Rectal exam: Present: deferred - Neurological Exam Neurological exam: Present: alert, oriented X3 - Psychiatric Psychiatric exam: Present: normal affect, normal mood ED Course Vital Signs 07/12/22 18:43 Temperature 97.9 F Pulse Rate 85 Respiratory 14 Rate Blood Pressure 135/72 [Right] O2 Sat by Pulse 99 Oximetry ED Medical Decision Making - Lab Data Result diagrams: 07/12/22 19:21 07/12/22 19:21 - Medical Decision Making hCG 278. Ultrasound shows swelling in the left fallopian tube concerning for possible ectopic . IM methotrexate ordered. Patient instructed to follow-up with her [employer] COORDINATOR in 4 days for recheck. Critical care attestation.: If time is entered above; I have spent that time in minutes in the direct care of this critically ill patient, excluding procedure time. ED Disposition Clinical Impression: Ectopic Disposition: 01 HOME / SELF CARE / HOMELESS Is pt being admited?: No Condition: Stable Instructions: Methotrexate Treatment for an Ectopic , Care After, Ectopic , [id number] Additional Instructions: Please follow-up with your [employer] PA[employer] COORDINATOR in 4 days. Time of Disposition: 00:32
[2022-07-13 01:19] VITALS: BP 141/86
== END 2022-07-13 01:19 | disposition home or self-care (01) ==
LOC: ED 17:29
DX: O00.90 Unspecified ectopic pregnancy without intrauterine pregnancy (principal); J45.909 Unspecified asthma, uncomplicated; F17.200 Nicotine dependence, unspecified, uncomplicated; Z3A.00 Weeks of gestation of pregnancy not specified
CPT/HCPCS: 36415; 76801; 76817; 80048; 84702; 85025; 96372; 99284; J9260